=== PATIENT | female | born 1945 | race Caucasian/White ===

== ENCOUNTER 2016-06-01 17:28 | Inpatient (IN) | payer MEDICARE ==
[~2016-06-01] VITALS: Ht 162.6 cm; Wt 82.5 kg
--- NOTE | 2016-06-01 17:43 | NUR ---
TRANSFER FROM ADMISSIONS BY W/C. OREINTED TO ROOM. CALL LIGHT IN REACH. WILL CONT. PLAN OF CARE.
[2016-06-01 17:56] VITALS: BP 133/75; BMI 34.0
[2016-06-01 18:05] VITALS: BP 133/78
--- NOTE | 2016-06-01 19:00 | NUR ---
INITIAL ROUNDS MADE. PT SITTING UP IN BED WATCHING TV. DENIES NEEDS OR C/O AT THIS TIME. WILL CONT TO MONITOR.
--- NOTE | 2016-06-01 19:00 | NUR ---
INITIAL ROUNDS MADE. PT SITTING UP IN BED WATCHING TV. DENIES NEEDS OR C/O AT THIS TIME. CALL LIGHT IN REACH. CONT TO MONITOR.
[2016-06-01 19:09] LABS: CKMB 1.5 U/L (0.0-3.6); CREATINE KINASE 37 UL (21-215)
[2016-06-01 19:10] LABS: TROPONIN-I 0.207 ng/mL (0.000-0.060)
--- NOTE | 2016-06-01 19:30 | NUR ---
PT IV SITED WITH 20 GA ANGIOCATH TO RIGHT HAND X1 STICK. PT THOMAS WELL. NS STARTED @ 75 ML/HR ORDERED. DRESSING ACCORDING TO POLICY. WILL MONITOR.
--- NOTE | 2016-06-01 20:30 | NUR ---
PT WITH ELEVATED D-DIMER AND ELEVATED TOPI. DR FERNÁNDEZ NOTIFIED. STATES HE WILL BE HERE IN THE AM TO ASSESS THE PT.
[2016-06-01 20:33] LABS: ALBUMIN 2.6 g/dL (3.4-5.0); ANION GAP 18.7 mmol/L (8-16); BILIRUBIN - TOTAL 0.4 mg/dL (0.2-1.3); CREATININE - SERUM 1.1 mg/dL (0.6-1.3); POTASSIUM - SERUM 3.7 mmol/L (3.5-5.1); PROTEIN - SERUM 7.5 g/dL (6.4-8.2)
[2016-06-01 21:01] VITALS: BP 111/66
--- NOTE | 2016-06-01 22:12 | NUR ---
DR DE LA ROSA NOTIFIED OF PT'S ELEVATED D-DIMER AND PT'S C/O DYSPNEA. ORDER RECEIVED FOR STAT CTA PE PROTOCOL. PT UPDATED ON POC AND SHE VERBALIZES UNDERSTANDING.
--- NOTE | 2016-06-02 00:01 | NUR ---
NO CHANGES NOTED IN ASSESSMENT. NO NEEDS VOICED. CALL LIGHT WITHIN REACH. WILL CONT TO MONITOR.
[2016-06-02 00:53] LABS: HEMOGLOBIN A1C 6.9 % (4.8-6.0)
[2016-06-02 01:01] VITALS: BP 124/70
[2016-06-02 01:20] LABS: CKMB 1.2 U/L (0.0-3.6); CREATINE KINASE 45 UL (21-215)
[2016-06-02 01:22] LABS: TROPONIN-I 0.212 ng/mL (0.000-0.060)
[2016-06-02 04:57] VITALS: BP 129/69
[2016-06-02 06:01] LABS: ALBUMIN 2.3 g/dL (3.4-5.0); ALKALINE PHOSPHATASE 123 U/L (46-116); ALT (SGPT) 27 U/L (10-68); BILIRUBIN - TOTAL 0.36 mg/dL (0.2-1.3); CALC OSMOLALITY 283 mosm/kg (275-300); CALCIUM 8.4 mg/dL (8.5-10.1); CARBON DIOXIDE 25.6 mmol/L (21.0-32.0); CHLORIDE - SERUM 105 mmol/L (98-107); CHOL - HDL RATIO 5.1 ratio (2.3-4.1); CHOLESTEROL, TOTAL 163 mg/dL (0-200); CKMB 1.4 U/L (0.0-3.6); CREATINE KINASE 44 UL (21-215); CREATININE - SERUM 1.1 mg/dL (0.6-1.3); GLUCOSE 138 mg/dL (74-106); HDL CHOLESTEROL 32 mg/dL (32-96); LDL CHOLESTEROL 101 mg/dL (0-100); LDL-HDL RATIO 3.2 ratio (1.5-3.5); POTASSIUM - SERUM 3.6 mmol/L (3.5-5.1); SODIUM 142 mmol/L (136-145); TRIGLYCERIDE 150 mg/dL (30-200); TROPONIN-I 0.169 ng/mL (0.000-0.060); UREA NITROGEN 10 mg/dL (7-18); eGFR NON AFRICAN AMERICAN 52 mL/min (90-120)
--- NOTE | 2016-06-02 07:36 | NUR ---
ASSESSMENT COMPLETED. TELEMERTY SHOWS ST. 02 AT 2 L/M PER NC. DENIES ANY NEEDS. CALL LIGHT IN REACH WITH SR UP. WILL MONITOR. REFUSED SCDS
[2016-06-02 08:23] VITALS: BP 112/78
--- NOTE | 2016-06-02 10:42 | NUR ---
UP ON SIDE OF BED. DENIES ANY NEEDS. CALL LIGHT IN REACH WITH SR UP
[2016-06-02] MEDS ORDERED: ANORO ELLIPTA1 EACH INH (11:15)
[2016-06-02 12:17] VITALS: BP 103/67
--- NOTE | 2016-06-02 14:58 | NUR ---
PATIENT HAS BEEN RUNNING AF, HR 116, STILL ON CARDIZEM DRIP. WILL CONTINUE TO MONITOR.
[2016-06-02 15:15] VITALS: BP 126/80
--- NOTE | 2016-06-02 16:11 | NUR ---
LYING QUIETLY WITH EYES CLOSED. TELEMERTY SHOWS AFIB AT 138. NO NEEDS NOTED
--- NOTE | 2016-06-02 17:33 | NUR ---
UP ON SIDE OF BED. DENIES ANY NEEDS. SR UP TIMES 2 WITH CALL LIGHT IN REACH. WILL MONITOR
[2016-06-02 20:00] VITALS: BP 131/82
[2016-06-03] VITALS: BP 121/76
--- NOTE | 2016-06-03 00:53 | NUR ---
HOUSEKEEPING STAFF AT BEDSIDE FOR VS. NEEDS ADDRESSED, CALL LIGHT IN REACH. WILL CONT TO MONITOR.
[2016-06-03 04:00] VITALS: BP 123/85
--- NOTE | 2016-06-03 04:25 | NUR ---
HOG DROPPER REPORTS PT HAS CONVERTED TO SR 76 WITH OCC PAC
[2016-06-03 05:34] LABS: BASOPHILS 0.2 % (0.0-2.0); EOSINOPHILS 0.5 % (0-7); HEMATOCRIT 33.2 % (36.0-48.0); HEMOGLOBIN 10.3 g/dL (12-16); IMMATURE GRANULOCYTES 0.5 % (0-5); LYMPHOCYTES 16.9 % (15-50); MCH 28.3 pg (26.0-34.0); MCV 91.2 fL (80.0-100.0); MEAN PLATELET VOLUME 10.1 fL (7.4-10.4); MONOCYTES 5.7 % (2-11); NEUTROPHILS 76.2 % (40-80); PLATELET COUNT 490 10x3/uL (130-400); RBC 3.64 10x6/uL (4.00-5.40); RDW 15.3 % (11.5-14.5); WBC 11.7 10x3/uL (4.8-10.8)
[2016-06-03 05:56] LABS: ALBUMIN 2.3 g/dL (3.4-5.0); ANION GAP 14.9 mmol/L (8-16); BILIRUBIN - TOTAL 0.27 mg/dL (0.2-1.3); CALCIUM 8.2 mg/dL (8.5-10.1); CARBON DIOXIDE 24.6 mmol/L (21.0-32.0); POTASSIUM - SERUM 3.5 mmol/L (3.5-5.1); PROTEIN - SERUM 6.9 g/dL (6.4-8.2)
[2016-06-03 07:00] VITALS: BP 149/74
--- NOTE | 2016-06-03 08:04 | NUR ---
ASSESSMENT COMPLETED. TELEMERTY SHOWS SR. IV TO RIGHT HAND NS AT 75 AND CARDIZEM AT 10. DENIES ANY NEEDS. SR UP WITH CALL LIGHT IN REACH
--- NOTE | 2016-06-03 10:50 | NUR ---
PT BACK IN AFIB. DENIES ANY NEEDS. CALL LIGHT IN REACH WITH SR UP. WILL MONITOR
--- NOTE | 2016-06-03 11:11 | NUR ---
CALLED TO ROOM PATIENT STATES THAT SHE IS "HAVING TROUBLE BREATHING". CHECKED O2 SAT WITH RESULTS OF 97% ON 3L PER NC. OFFERED A FAN FOR HER TO BE PLACED ON BEDSIDE FOR AIR MOVEMENT. ALSO, TOLD HER THAT WHEN HER DOCTOR MADE ROUNDS THAT WE WOULD SEE ABOUT GETTING HER INHALER STARTED. EXPLAINED THAT HER HEART WENT BACK INTO A. FLUTTER AND THAT ALSO GIVES HER THE FEELING THAT SHE CAN'T BREATH WELL. ON CARDIZEM DRIP STILL. PATIENT SEEMS TO BE HAPPY WITH THIS INFORMATION AND THE FAN. WILL CONTINUE TO MONITOR.
[2016-06-03 11:56] VITALS: BP 139/81
[2016-06-03 14:43] LABS: % SATURATION 13 % (15-55); IRON 31 ug/dl (35-150); TOTAL IRON BIND CAPACITY 229 ug/dl (260-445); UNSAT IRON BIND CAPACITY 198 ug/dl (150-375)
--- NOTE | 2016-06-03 15:35 | NUR ---
UP TO BR. STATES SHE FEELS BETTER ALREADY. TELE SHOWS FLUTTER AT 147. WILL MONITOR
[2016-06-03 16:00] VITALS: BP 154/78
--- NOTE | 2016-06-03 19:00 | NUR ---
INITIAL ROUNDS MADE. PT SITTING UP IN BED WATCHING TV. PT DENIES NEEDS OR C/O AT THIS TIME. DISCUSSED PLAN OF CARE AND NPO AFTER MN. QUESTIONS ANSWERED REGARDING PROCEDURE IN AM.
[2016-06-03 20:00] VITALS: BP 118/74
[2016-06-04] VITALS: BP 112/68
--- NOTE | 2016-06-04 00:22 | NUR ---
CANVASSING MANAGER AT BEDSIDE FOR VS. NEEDS ADDRESSED, CALL LIGHT IN REACH. WILL CONT TO MONITOR.
[2016-06-04 04:00] VITALS: BP 111/64
[2016-06-04 05:06] LABS: APTT 30.8 SECONDS (22.8-39.4); BASOPHILS 0.2 % (0.0-2.0); EOSINOPHILS 0.9 % (0-7); HEMATOCRIT 34.3 % (36.0-48.0); IMMATURE GRANULOCYTES 0.4 % (0-5); INR 1.15 (0.85-1.17); LYMPHOCYTES 13.7 % (15-50); MCH 29.2 pg (26.0-34.0); MCHC 32.1 g/dL (31.0-37.0); MEAN PLATELET VOLUME 11.1 fL (7.4-10.4); MONOCYTES 7.7 % (2-11); NEUTROPHILS 77.1 % (40-80); PLATELET COUNT 416 10x3/uL (130-400); PROTIME 14.6 SECONDS (11.6-15.0); RBC 3.77 10x6/uL (4.00-5.40); RDW 15.6 % (11.5-14.5); WBC 12.9 10x3/uL (4.8-10.8)
--- NOTE | 2016-06-04 06:05 | NUR ---
RESTING WELL WITH EYES CLOSED, CONT TO MONITOR.
[2016-06-04 06:14] LABS: ALBUMIN 2.4 g/dL (3.4-5.0); ANION GAP 15.2 mmol/L (8-16); BILIRUBIN - TOTAL 0.28 mg/dL (0.2-1.3); CALCIUM 8.4 mg/dL (8.5-10.1); POTASSIUM - SERUM 3.2 mmol/L (3.5-5.1)
[2016-06-04 07:42] VITALS: BP 121/64
--- NOTE | 2016-06-04 07:57 | NUR ---
IV TO RIGHT HAND DC'D WITH TIP INTACT DUE TO REDNESS AND PAIN. COVERED WITH 2X2 GAUZE AND TAPE. TOLERATED WELL. RESITED 22G IV TO RIGHT WRIST WITH ONE ATTEMPT. COVERED WITH OPSITE, DATED AND INITIALED. TOLERATED WELL.
--- NOTE | 2016-06-04 08:00 | NUR ---
IV RESTARTED TO RIGHT WRIST WITTH 22 GAUGE CATH X 1 STICK BY WHITNEY EVANS. TELEMETRY UCAF. IV PATENT. CALL LIGHT IN REACH. WILL CONT. PLAN OF CARE.
--- NOTE | 2016-06-04 09:17 | NUR ---
CARDEZEM GTT INFUSING. NPO FOR THORACENTESIS WITH BIOPSY. WILL CONT. GIRSEL OF CARE.
--- NOTE | 2016-06-04 10:05 | NUR ---
LEAVING FOR X-RAY BY W/C.
--- NOTE | 2016-06-04 11:19 | NUR ---
BACK FROM SPECIALS. CALL LIGHT IN REACH. WILL CONT. PLAN OF CARE.
[2016-06-04 11:50] VITALS: BP 111/57
[2016-06-04 12:39] LABS: PROTEIN - BODY FLUID 2.8 G/DL
[2016-06-04 13:11] VITALS: Ht 162.6 cm; Wt 82.5 kg
[2016-06-04 13:27] LABS: LYMPH - BF 87 %; MACROPHAGES BF 4 %; NEUT - BF 9 %
[2016-06-04 16:01] VITALS: BP 135/66
--- NOTE | 2016-06-04 19:00 | NUR ---
INITIAL ROUNDS MADE. PT SITTING UP INBED WATCHING TV. DENIES NEEDS OR C/O AT THIS TIME. CALL LIGHT INREACH. WILL CONT TO MONITOR.
[2016-06-04 20:00] VITALS: BP 119/62
--- NOTE | 2016-06-04 23:37 | NUR ---
LITHOGRAPHIC PHOTOGRAPHER AT BEDSIDE FOR VS, NEEDS ADDRESSED AT THIS TIME. CALL LIGHT IN REACH. CONT TO MONITOR.
[2016-06-05] VITALS: BP 112/61
[2016-06-05 04:00] VITALS: BP 101/71
[2016-06-05 05:34] LABS: BASOPHILS 0.2 % (0.0-2.0); HEMATOCRIT 34.5 % (36.0-48.0); HEMOGLOBIN 10.9 g/dL (12-16); IMMATURE GRANULOCYTES 0.4 % (0-5); LYMPHOCYTES 17.2 % (15-50); MCH 28.6 pg (26.0-34.0); MCHC 31.6 g/dL (31.0-37.0); MCV 90.6 fL (80.0-100.0); MONOCYTES 8.3 % (2-11); NEUTROPHILS 72.9 % (40-80); PLATELET COUNT 492 10x3/uL (130-400); RBC 3.81 10x6/uL (4.00-5.40); RDW 15.4 % (11.5-14.5); WBC 11.3 10x3/uL (4.8-10.8)
[2016-06-05 05:49] LABS: ALBUMIN 2.5 g/dL (3.4-5.0); ANION GAP 12.6 mmol/L (8-16); BILIRUBIN - TOTAL 0.36 mg/dL (0.2-1.3); CALCIUM 8.2 mg/dL (8.5-10.1); CARBON DIOXIDE 32.2 mmol/L (21.0-32.0); CREATININE - SERUM 1.2 mg/dL (0.6-1.3); PROTEIN - SERUM 7.2 g/dL (6.4-8.2)
[2016-06-05 06:03] LABS: POTASSIUM - SERUM 2.8 mmol/L (3.5-5.1)
[2016-06-05 07:52] VITALS: BP 113/75
[2016-06-05 09:17] LABS: FOLATE (FOLIC ACID) - SERUM 8.9 ng/mL (>3.0)
--- NOTE | 2016-06-05 10:40 | NUR ---
TELEMETRY FLUTTER. HR 141. RESTS WITH EYES CLOSED. CALL LIGHT IN REACH. WILL CONT. PLAN OF CARE.
[2016-06-05 11:34] VITALS: BP 123/51
--- NOTE | 2016-06-05 15:47 | NUR ---
URINE SPECIMEN COLLECTED AND TAKEN TO LAB FOR UA. WILL MONITOR.
[2016-06-05 16:05] VITALS: BP 114/48; BP 128/68
[2016-06-05 16:08] LABS: MAGNESIUM - SERUM 1.8 mg/dL (1.8-2.4)
[2016-06-05 16:11] LABS: APPEARANCE CLEAR (CLEAR); BILIRUBIN NEGATIVE (NEGATIVE); COLOR YELLOW (YELLOW); GLUCOSE NEGATIVE (NEGATIVE); KETONE NEGATIVE (NEGATIVE); LEUKOCYTE ESTERASE NEGATIVE (NEGATIVE); NITRITE NEGATIVE (NEGATIVE); PROTEIN NEGATIVE (NEGATIVE); SPECIFIC GRAVITY 1.015 (1.005-1.020); UROBILINOGEN NORMAL (NORMAL)
[2016-06-05 16:14] LABS: POTASSIUM - SERUM 4.6 mmol/L (3.5-5.1)
--- NOTE | 2016-06-05 16:47 | NUR ---
Patient Name: JASPER BOYKIN Admission Status: Urgent Accout number: [id number] Admission Date: 06-02-2016 : 1945 Admission Diagnosis:DYSPNEA, UNSPECIFIED Attending: MICHAEL Current LOS: 3 Anticipated DC Date: Planned Disposition: Home Primary Insurance: MEDICARE A & B Discharge Planning Comments: * Is the patient Alert and Oriented? Yes 0 * How many steps to enter\exit or inside your home? 3 0 * PCP DR. HUNTER 0 * Pharmacy [facility] [address] * Preadmission Environment Home with Family 0 * ADLs Independent 0 * Equipment None 0 * Other Equipment NO MEDICAL EQUIPMENT PROVIDER PREFERENCE 0 * List name and contact numbers for known caregivers / representatives who currently or will assist patient after discharge: LEE BOYKIN, SON, 0 * Community resources currently utilized None 0 * Please name any agencies selected above. NONE 0 * Additional services required to return to the preadmission environment? No 0 * Can the patient safely return to the preadmission environment? Yes 0 * Has this patient been hospitalized within the prior 30 days at any hospital? No 0 CM MET WITH PT, SON AND DAUGHTER IN ROOM TO DISCUSS DISCHARGE PLANNING AND NEEDS. PT REPORTS LIVING AT HOME INDEPENDENTLY WITH ADULT SON AND DAUGHTER. PT HAS NO MEDICAL EQUIPMENT AND NO OUTSIDE SERVICES ASSISTING IN THE HOME. CM DISCUSSED AVAILABILITY OF HOME HEALTH, REHAB SERVICES AND MEDICAL EQUIPMENT. PT DENIES DISCHARGE NEEDS, REPORTS HER SON WILL PICK HER UP FOR DISCHARGE HOME. PT PLANS TO DISCHARGE HOME WITH FAMILY, HAS NO ANTICIPATED DISCHARGE NEEDS. CM TO FOLLOW AND ASSIST IF NEEDED. Lead Technical Architect: Brendan Payan
--- NOTE | 2016-06-05 19:00 | NUR ---
INITIAL ROUNDS MADE. PT SITTINGUP IN BED WATCHING TV. DENIES NEEDS OR C/O AT THIS TIME. CALL LIGHT IN REACH. WILL CONT TO MONITOR.
[2016-06-05 20:00] VITALS: BP 113/61
--- NOTE | 2016-06-05 23:43 | NUR ---
OYSTER FLOATER AT BEDSIDE FOR VS, NEEDS ADDRESSED. CALL LIGHT IN REACH.CONT TO MONITOR.
[2016-06-06] VITALS: BP 94/56
--- NOTE | 2016-06-06 00:43 | NUR ---
STOOL COLLECTED AND TAKEN TO LAB
[2016-06-06 03:10] LABS: AFB SPECIMEN PROCESSING Not Indicated (())
[2016-06-06 04:00] VITALS: BP 100/64
[2016-06-06 05:02] LABS: BASOPHILS 0.2 % (0.0-2.0); EOSINOPHILS 1.1 % (0-7); HEMATOCRIT 36.5 % (36.0-48.0); HEMOGLOBIN 11.6 g/dL (12-16); IMMATURE GRANULOCYTES 0.4 % (0-5); LYMPHOCYTES 18.9 % (15-50); MCH 28.7 pg (26.0-34.0); MCHC 31.8 g/dL (31.0-37.0); MCV 90.3 fL (80.0-100.0); MEAN PLATELET VOLUME 10.1 fL (7.4-10.4); MONOCYTES 8.4 % (2-11); PLATELET COUNT 505 10x3/uL (130-400); RBC 4.04 10x6/uL (4.00-5.40); RDW 15.3 % (11.5-14.5)
--- NOTE | 2016-06-06 05:24 | NUR ---
SITTING UP ON SIDE OF BED FOR BATH.
[2016-06-06 05:46] LABS: ALBUMIN 2.7 g/dL (3.4-5.0); ANION GAP 15.4 mmol/L (8-16); BILIRUBIN - TOTAL 0.42 mg/dL (0.2-1.3); CALCIUM 8.4 mg/dL (8.5-10.1); CARBON DIOXIDE 28.5 mmol/L (21.0-32.0); CREATININE - SERUM 1.2 mg/dL (0.6-1.3); MAGNESIUM - SERUM 1.8 mg/dL (1.8-2.4); PHOSPHOROUS 4.3 mg/dL (2.5-4.9); PROTEIN - SERUM 7.8 g/dL (6.4-8.2)
[2016-06-06 05:49] LABS: POTASSIUM - SERUM 3.9 mmol/L (3.5-5.1)
[2016-06-06 08:00] VITALS: BP 96/66
--- NOTE | 2016-06-06 09:05 | NUR ---
SPOKE WITH DR. JOLENE RODGERS HR AND RHYTHM. NEW ORDERS GIVEN. IV PATENT. CALL LIGHT IN REACH. TELEMETRY FLUTTER HR 123.
[2016-06-06 10:18] LABS: FUNGUS STAIN Final report (())
[2016-06-06 12:00] VITALS: BP 92/62
[2016-06-06 16:00] VITALS: BP 117/72
--- NOTE | 2016-06-06 19:30 | NUR ---
RESUMED CARE OF PT, LYING IN BED RESPIRAITONS EVEN AND UNLABORED ON 2LPM VIA NC. 121 FLUTTER ON TELEMETRY. RIGHT AC INFUSING CARDIZEM @ 15 AND NS @ KVO. NO NEEDS VOICED AT THIS TIME. WILL CONTINUE TO MONITOR. SEE NURSE ASSESSMENT. CALL LIGHT IN REACH.
[2016-06-06 21:56] VITALS: BP 110/47
--- NOTE | 2016-06-07 00:12 | NUR ---
ELECTRICAL DESIGNER DRAFTER AT BEDSIDE TO OBTAIN VITALS, CALL LIGHT IN REACH. WILL CONTINUE WITH PLAN OF CARE. 57 SB ON TELEMETRY, CONVERTED AT 2356. DECREASED CARDIZEM TO 10. WILL CONTINUE TO MONITOR.
[2016-06-07 01:17] VITALS: BP 93/41
--- NOTE | 2016-06-07 03:26 | NUR ---
56 SB ON TELEMETRY, DECREASED RATE TO 5ML/HR.
[2016-06-07 05:11] VITALS: BP 97/41
[2016-06-07 05:46] LABS: BASOPHILS 0.1 % (0.0-2.0); EOSINOPHILS 0.3 % (0-7); HEMATOCRIT 36.5 % (36.0-48.0); HEMOGLOBIN 11.6 g/dL (12-16); IMMATURE GRANULOCYTES 0.4 % (0-5); LYMPHOCYTES 16.1 % (15-50); MCHC 31.8 g/dL (31.0-37.0); MCV 91.3 fL (80.0-100.0); MONOCYTES 6.8 % (2-11); NEUTROPHILS 76.3 % (40-80); PLATELET COUNT 534 10x3/uL (130-400); RDW 15.2 % (11.5-14.5); WBC 14.2 10x3/uL (4.8-10.8)
--- NOTE | 2016-06-07 06:03 | NUR ---
NO CHANGES FROM PREVIOUS ASSESSMENT. CALL LIGHT IN REACH.
[2016-06-07 06:21] LABS: ALBUMIN 2.6 g/dL (3.4-5.0); ANION GAP 13.4 mmol/L (8-16); BILIRUBIN - TOTAL 0.36 mg/dL (0.2-1.3); CARBON DIOXIDE 30.6 mmol/L (21.0-32.0); CREATININE - SERUM 1.3 mg/dL (0.6-1.3); MAGNESIUM - SERUM 2.2 mg/dL (1.8-2.4); PROTEIN - SERUM 7.6 g/dL (6.4-8.2)
[2016-06-07 07:39] VITALS: BP 113/61
--- NOTE | 2016-06-07 09:39 | NUR ---
TELEMETRY SR. IV PATENT. CALL LIGHT IN REACH. WILL CONT. PLAN OF CARE.
--- NOTE | 2016-06-07 12:06 | NUR ---
CONSENTS SIGNED FOR IP.
[2016-06-07 12:11] VITALS: BP 100/42
--- NOTE | 2016-06-07 17:49 | NUR ---
LEAVING FOR MRI BY W/C.
[2016-06-07 20:00] VITALS: BP 123/51
[2016-06-08] VITALS: BP 117/61
--- NOTE | 2016-06-08 03:33 | NUR ---
HIGHWAY PATROL COMMANDER AT BEDSIDE TO OBTAIN VITALS, CALL LIGHT IN REACH. WILL CONTINUE WITH PLAN OF CARE.
[2016-06-08 04:00] VITALS: BP 105/66
[2016-06-08 07:05] LABS: BASOPHILS 0 % (0.0-2.0); EOSINOPHILS 0 % (0-7); HEMATOCRIT 36.4 % (36.0-48.0); HEMOGLOBIN 11.6 g/dL (12-16); IMMATURE GRANULOCYTES 0.2 % (0-5); MCH 28.7 pg (26.0-34.0); MCHC 31.9 g/dL (31.0-37.0); MCV 90.1 fL (80.0-100.0); MEAN PLATELET VOLUME 9.9 fL (7.4-10.4); MONOCYTES 1.4 % (2-11); NEUTROPHILS 92.4 % (40-80); PLATELET COUNT 537 10x3/uL (130-400); RBC 4.04 10x6/uL (4.00-5.40); RDW 14.9 % (11.5-14.5)
[2016-06-08 07:23] LABS: ANION GAP 15.2 mmol/L (8-16); CALCIUM 9.3 mg/dL (8.5-10.1); CARBON DIOXIDE 29.5 mmol/L (21.0-32.0); CREATININE - SERUM 1.3 mg/dL (0.6-1.3); MAGNESIUM - SERUM 2.2 mg/dL (1.8-2.4); PHOSPHOROUS 5.4 mg/dL (2.5-4.9); POTASSIUM - SERUM 3.7 mmol/L (3.5-5.1)
--- NOTE | 2016-06-08 07:36 | NUR ---
RESTING QUIETLY RESP UNLABORED NAD NOTED
--- NOTE | 2016-06-08 07:55 | NUR ---
ASSESSMENT COMPLETED. TELEMERTY SHOWS SR WITH PACS. 02 AT 2L/M PER NC. DENIES ANY NEEDS. CALL LIGHT IN REACH WITH SR UP. WILL MONITOR. SR UP WITH CALL LIGHT IN REACH. NPO FOR SURGERY.
[2016-06-08 08:07] VITALS: BP 115/58
--- NOTE | 2016-06-08 08:50 | NUR ---
TO SURGERY PER BED
--- NOTE | 2016-06-08 10:32 | NUR ---
1028 0.5MG DILAUDID GIVEN FOR PAIN 11/15 1032 REPORT GIVEN TO ARLET GEORGE
--- NOTE | 2016-06-08 11:30 | NUR ---
BACK FROM SURGERY. AWAKE AND ALERT. DRSG TO RIGHT CHEST CLEAN AND DRY. DENIES ANY NEEDS. TELEMERTY SHOWS SR. V/S STABLE. WILL MONITOR
--- NOTE | 2016-06-08 13:27 | NUR ---
Nutrition Follow Up: Chart reviewed. Pt is eating 92% meal avg on a Regular diet. Wt loss 8# since admit. I<O. +BM 06/06/16. Labs noted - Glucose, Phos elevated. Meds noted including NS @ 25 ml/hr, Solu-Medrol, Phenergan, Zofran, Lasix. Pt with good po intake at this time. Rec continue current diet. RD following.
--- NOTE | 2016-06-08 13:28 | NUR ---
LYING QUIETLY WITH EYES CLOSED.. NO DISTRESS. NOTED. CALL LIGHT IN REACH WITH SR UP. WILL MONITOR
[2016-06-08 15:59] VITALS: BP 109/69
[2016-06-08 20:31] VITALS: BP 123/65
[2016-06-09 00:15] VITALS: BP 117/58
--- NOTE | 2016-06-09 01:04 | NUR ---
PT RESTING WELL WITHOUT C/O OR DISTRESS NOTED. EYES CLOSED AND RESP EVEN AND UNLABORED. CALL LIGHT WITHIN REACH. WILL CONTINUE TO MONITOR.
[2016-06-09 04:30] VITALS: BP 117/66
[2016-06-09 07:55] VITALS: BP 133/55
--- NOTE | 2016-06-09 09:51 | NUR ---
RELEMETRY SR. CALL LIGHT IN REACH. WILL MONITOR NEEDS.
[2016-06-09 11:47] VITALS: BP 121/56
[2016-06-09] MEDS ORDERED: OMNICEF300 MG PO (13:36)
[2016-06-09] MEDS ORDERED: ATROVENT 0.02%2.5 ML UPD (13:37)
[2016-06-09] MEDS ORDERED: LASIX20 MG PO (13:37)
[2016-06-09] MEDS ORDERED: BROVANA15 MCG/2 M INH (13:37)
[2016-06-09] MEDS ORDERED: CARDIZEM 90 MG90 MG PO (13:37)
[2016-06-09] MEDS ORDERED: BETAPACE 80 MG80 MG PO (13:37)
[2016-06-09] MEDS ORDERED: PREDNISONE20 MG PO (13:38)
[2016-06-09] MEDS ORDERED: PULMICORT0.5 MG/21 UPD (13:38)
[2016-06-09] MEDS ORDERED: K-DUR20 MEQ PO (13:38)
[2016-06-09] MEDS ORDERED: PROTONIX40 MG PO (13:38)
--- NOTE | 2016-06-09 15:30 | NUR ---
IV AND TELEMETRY DCD. DC PLANS GIVEN. UNDERSTANDING VOICED. ESCORTED TO CAR BY W/C.
--- NOTE | 2016-06-09 18:06 | NUR ---
Late Entry Patient for discharge to home w/ nebulizer today. CM met w/ patient and her son at the bedside. Advised of 4 providers. The son selected [facility]. TC to Sofia Kim. Faxed facesheet, prescription , H/P and pulmonary consult. Sofia called to speak with the patient regarding delivery. release coordinator called [facility] in [place] however they were closed until Saturday. She called the second [employer] store and they had closed for the day. Will not be available until Saturday. She spoke with the patient and the patient chose [facility] on [address]. release coordinator called the RX's in. The Atrovent was the most important updraft medication per DR You. release coordinator provided the patient w/ the prices of the medication. Patient has no secondary insurance. CM called [employer] and left a message regarding financial assistance. Patient is newly diagnosed cancer patient. Patient discharged to home w/ family providing transportation.
--- NOTE | 2016-06-26 08:17 | EC ---
PATIENT:JASPER BOYKIN DATE OF SERVICE: 06/02/16 SEX: F MEDICAL RECORD: [id number] DATE OF : [birth year] LOCATION:D. D.211 AGE OF PATIENT: 71 ADMISSION DATE: 06/02/16 REFERRING PHYSICIAN: INTERPRETING PHYSICIAN: JING LAURENT M.D. ECHOCARDIOGRAM REPORT ECHO CHARGES 4 ECHO COMPLETE CLINICAL DIAGNOSIS: A-FIB ECHOCARDIOGRAPHIC MEASUREMENTS (adult normal given) AC root (d.<3.7cm) 3.3 LV Septum d (<1.2 cm> 1.1 Valve Excursion 1.4 LV Septum (systole) 1.7 Left Atria (s.<4.0cm> 4.0 LVPW d(<1.2cm) 1.1 RV (d.<2.3cm) 2.3 LVPW (sytole) 1.6 LV diastole(<5.6CM) 4.9 MV E-F(>70mm/sec) LV systole 3.4 LVOT Diameter 2.1 MV exc.(>10mm) Est.ejection fraction (50-75%) Pericardial Effusion N DOPPLER: LVIT A E 162 LA RVSP 37.2 LVOT 89.0 AOP1/2T Asc. Ao 140 RVOT 48.0 RA PA 74.0 AV Gradient Peak 7.8 AV Mean 3.9 AV Area 2.0 MV Gradient Peak 14.2 MV Mean 5.0 MV Area COMMENTS: Dry Cleaner Apprentice: Perri CHINOOE Cap Maker:Esha Laurent TAPE# PACS DATE OF SERVICE: 06/02/2016 REFERRING PHYSICIAN: Dr. Gannon. DESCRIPTION: Left ventricle is normal size. However, there is severe LV dysfunction noted. Estimated ejection is in the order of 20%. Mitral valve is structurally normal. There is trivial regurgitation seen. Left atrium is mildly dilated. The aortic valve leaflets are thickened. There is no stenosis or regurgitation seen. Right ventricle is normal size and function. Tricuspid valve is normal. There is mild regurgitation noted. Right ventricular systolic ECHOCARDIOGRAM REPORT [id number] JASPER BOYKIN pressure is elevated at 37 mmHg. There is no pericardial effusion noted. IMPRESSION: 1. Severe left ventricular dysfunction with ejection fraction 20% consistent with cardiomyopathy. 2. Moderate tricuspid regurgitation. TRANSINT:[id number] Voice Confirmation ID: [id number] DOCUMENT ID: [id number] JING LAURENT M.D. at 0817 CC: [id number] DICTATION DATE: 06/02/161908 DIVINITY PROFESSOR: 06/02/161926 DIS IN 06/09/16 [place] [id number] [place] [id number]
--- NOTE | 2016-06-29 13:49 | CN ---
PATIENT NAME:JASPER HENDERSON MEDICAL RECORD: [id number] : 47 LOCATION:D. D.2117 ADMIT DATE: 06/02/16 ACCOUNT: [id number] CONSULTING PHYSICIAN: BOO JAMES MD REFERRING PHYSICIAN: DAKSHA GANNON MD DATE OF CONSULTATION: 06/03/2016 CONSULT REQUESTING PHYSICIAN: Campbell Carrera MD. REASON FOR CONSULTATION: Dyspnea, mass right upper lobe, pleural effusion. HISTORY OF PRESENT ILLNESS: Ms. Henderson is a 70-year-old female. According to the patient, she has upper respiratory tract infection a few days ago and that got better, but then she developed progressive shortness of breath, orthopnea and PND, and with shortness of breath at rest. She was seen in Dr. Gannon office yesterday. EKG was done and the patient's heart rate was irregular, admitted to the hospital for uncontrolled AFib. The patient has a positive D-dimer and CTA of the chest was done which showed mass in the right upper lobe and bilateral pleural effusions, right more than the left. She is also having a dry cough. The patient was a chronic smoker. She just quitted a month ago. REVIEW OF SYSTEMS: Mainly in the history of present illness. PAST MEDICAL HISTORY: 1. Hypertension, there is no history of chronic obstructive pulmonary disease and asthma. 2. History of coronary artery disease. PAST SURGICAL HISTORY: Nonsignificant. ALLERGIES: There is no known drug allergies. PRESENT MEDICATIONS: On Blinkbuggy was reviewed. She is on Cardizem drip. PERSONAL AND SOCIAL HISTORY: The patient was a chronic smoker and nearly a pack a day. She just quitted a month ago. She is a nondrinker. FAMILY HISTORY: Noncontributory. PHYSICAL EXAMINATION: GENERAL: Now, the patient is lying comfortably in bed. She is not in acute distress. VITAL SIGNS: The blood pressure is 139/81, pulse is 78 to 145, temperature is 97.7, and SpO2 is 99% on 3 liter nasal cannula. HEENT: Conjunctivae pink, sclerae nonicteric. NECK: Supple, very elevated JVD. CHEST: The chest is very minimal on the right side. Dullness of percussion. There are crackles, wheeze on forceful expiration. HEART: Rate and rhythm irregular. Normal sound. No murmur. ABDOMEN: Soft, bowel sounds present. No hepatosplenomegaly. RECTAL: Deferred. EXTREMITIES: She has 2+ edema. SKIN: Warm, normal turgor. CENTRAL NERVOUS SYSTEM: The patient is awake and alert. There are no obvious CONSULT REPORT [id number] JASPER HENDERSON cranial nerve abnormalities. The gait was not tested. IMAGING: CTA of the chest: There is a mass in the right upper lobe. There is enlarged, moderate sized pleural effusion on the right, small on the left. There was no PE. LABORATORY DATA: CBC: The WBC is 11.7, hemoglobin 10.3, hematocrit 33.2. The platelet count is 490. Chemistry: Sodium is 142, potassium 3.5, BUN is 9, creatinine is 1. D-dimer was positive with a negative CTA. Cardiac echo: The PA pressure is 37. The EF is 20%. IMPRESSION: 1. Mass right upper lobe, rule out CA of the lung. 2. Bilateral pleural effusion, right more than the left, possibly secondary to congestive heart failure. 3. Atrial fibrillation. 4. Congestive heart failure with systolic dysfunction, EF of 20% and some mild pulmonary hypertension secondary to congestive heart failure, possibly underlying chronic obstructive pulmonary disease with a history of smoking more than [id number]. 5. Dyspnea. 6. Ex-smoker. RECOMMENDATION: Start her on Xopenex and ipratropium nebulizer. Start on Brovana, budesonide nebulizer. Start her on Lasix. We will get thoracentesis of the chest of the right tomorrow and also to consult of transthoracic needle biopsy of the right apical mass. Dr. Carrera, once again thanks for involving me in the care of Ms. Henderson. TRANSINT:[id number] Voice Confirmation ID: [id number] DOCUMENT ID: [id number] BOO JAMES MD at 1349 CC: DAKSHA GANNON MD [id number] DICTATION DATE: 06/03/16 1434 STAGE BUILDER: 06/03/16 1623 DIS IN 06/09/[address] [address]
[2016-07-02 08:09] LABS: FUNGUS MYCOLOGY CULTURE Final report (())
--- NOTE | 2016-07-06 13:21 | OP ---
PATIENT NAME: JASPER BOYKIN MEDICAL RECORD: [id number] :47 LOCATION:D.M2 D.2117 ADMISSION DATE:06/02/16 SURGEON: GEORGE PAREDES MD DATE OF OPERATION: 06/08/2016 PREOPERATIVE DIAGNOSES: 1. Lung cancer. 2. Hypertension. 3. Coronary artery disease. POSTOPERATIVE DIAGNOSES: 1. Lung cancer. 2. Hypertension. 3. Coronary artery disease. PROCEDURE: Right-sided subclavian vein PowerPort placement with fluoroscopic interpretation. SURGEON: George Paredes MD OPERATIVE PROCEDURE: The patient's right chest was prepped and draped in sterile fashion. A needle was used to cannulate the right subclavian vein. Fluoro was used to note that the wire was in good position in the venous system. A skin incision was made on the right lateral chest and a subcutaneous pouch was made overlying the pectoral fascia. The catheter was tunneled between this pouch and the wire exit site. The port was sutured to the pectoral fascia using interrupted 0 Prolenes times 2. The catheter was then cut with a beveled tip at 17 cm. The dilator trocar device was placed over the wire and the wire and dilator were removed. The catheter tip was advanced through the trocar with ease and the trocar was removed. The catheter tip was resting in good position in the superior vena cava. The catheter flushed easily with heparinized saline. The subcutaneous tissues were reapproximated with interrupted 3-0 Vicryl and skin was closed with running subcutaneous 5-0 Monocryl. We then accessed the port and flushed it one last time before placing a dressing. COMPLICATIONS: None. CONDITION: Stable. ANESTHESIA: General endotracheal. BLOOD LOSS: Minimal. TRANSINT:[id number] Voice Confirmation ID: [id number] DOCUMENT ID: [id number] GEORGE PAREDES MD at 1321 CC: [id number] DICTATION DATE: 06/08/16 1009 CHIPS SCREEN TENDER: 06/08/16 1536 DIS IN 06/09/16 [place] [id number] [place] [address]
[2016-07-25 16:14] LABS: ACID FAST CULTURE Negative (()); ACID FAST SMEAR Negative (())
== END 2016-06-09 15:30 | disposition home or self-care (01) | DRG 180 ==
LOC: D.M2 17:28 → OBSVTIME 17:30 → D.M2 06-02 18:34
PROVIDERS: Emergency Medicine; Family Medicine; Internal Medicine Cardiovascular Disease; Internal Medicine Pulmonary Disease; Radiology Diagnostic Radiology; ADMIT Family Medicine Adult Medicine
PROC: 0BBC3ZX Excision of Right Upper Lung Lobe, Percutaneous Approach, Diagnostic (ICD-10-PCS; principal; 2016-06-04 14:00)
PROC: 0W993ZZ Drainage of Right Pleural Cavity, Percutaneous Approach (ICD-10-PCS; 2016-06-04 14:00)
PROC: 0JH63XZ Insertion of Tunneled Vascular Access Device into Chest Subcutaneous Tissue and Fascia, Percutaneous Approach (ICD-10-PCS; 2016-06-08)
PROC: 05H533Z Insertion of Infusion Device into Right Subclavian Vein, Percutaneous Approach (ICD-10-PCS; 2016-06-08)
PROC: B5161ZA Fluoroscopy of Right Subclavian Vein using Low Osmolar Contrast, Guidance (ICD-10-PCS; 2016-06-08)
DX: C34.11 Malignant neoplasm of upper lobe, right bronchus or lung (principal); I50.23 Acute on chronic systolic (congestive) heart failure; J18.9 Pneumonia, unspecified organism; J44.1 Chronic obstructive pulmonary disease with (acute) exacerbation; I48.92 Unspecified atrial flutter; I42.9 Cardiomyopathy, unspecified; J90 Pleural effusion, not elsewhere classified; I24.8 Other forms of acute ischemic heart disease; R91.8 Other nonspecific abnormal finding of lung field; I11.0 Hypertensive heart disease with heart failure; I25.10 Atherosclerotic heart disease of native coronary artery without angina pectoris; E87.6 Hypokalemia; D64.9 Anemia, unspecified; I27.2 Other secondary pulmonary hypertension; I48.0 Paroxysmal atrial fibrillation; Z87.891 Personal history of nicotine dependence

== ENCOUNTER → 2016-08-09 07:59 | Outpatient (CLI) | payer MEDICARE ==
[2016-06-04 13:11] VITALS: BMI 33.1
[~2016-08-09 07:59] MED LIST: ANORO ELLIPTA1 EACH INH; ATROVENT 0.02%2.5 ML UPD; BETAPACE 80 MG80 MG PO; BROVANA15 MCG/2 M INH; CARDIZEM 90 MG90 MG PO; K-DUR20 MEQ PO; LASIX20 MG PO; OMNICEF300 MG PO; PREDNISONE20 MG PO; PROTONIX40 MG PO; PULMICORT0.5 MG/21 UPD
== END | disposition home or self-care (01) ==
LOC: D.CT 07:59
DX: C34.11 Malignant neoplasm of upper lobe, right bronchus or lung (principal)

== ENCOUNTER → 2016-11-16 12:18 | Outpatient (CLI) | payer MEDICARE ==
[2016-06-04 13:11] VITALS: BMI 33.1
--- NOTE | ~2016-11-16 | EC ---
PATIENT:JASPER BOYKIN DATE OF SERVICE: 11/16/16 SEX: F MEDICAL RECORD: [id number] DATE OF : 47 LOCATION:D.PENDING SALE TO [facility] AGE OF PATIENT: 71 ADMISSION DATE: 11/16/16 REFERRING PHYSICIAN: INTERPRETING PHYSICIAN: BRUCE SCHWARTZ MD ECHOCARDIOGRAM REPORT ECHO CHARGES 4 ECHO COMPLETE CLINICAL DIAGNOSIS: LUNG CANCER/HTN/PULMONARY EMBOLISM/SOB ECHOCARDIOGRAPHIC MEASUREMENTS (adult normal given) AC root (d.<3.7cm) 3.4 cm LV Septum d (<1.2 cm> 1.3 cm Valve Excursion 1.2 cm LV Septum (systole) 1.5 cm Left Atria (s.<4.0cm> 3.6 cm LVPW d(<1.2cm) 1.0 cm RV (d.<2.3cm) 2.1 cm LVPW (sytole) 1.5 cm LV diastole(<5.6CM) 5.0 cm MV E-F(>70mm/sec) cm LV systole 3.8 cm LVOT Diameter 1.6 cm MV exc.(>10mm) cm Est.ejection fraction (50-75%) % Pericardial Effusion N DOPPLER: LVIT cm/sec A 114.0cm/sec E 74.0 cm/sec LA cm/sec RVSP 33.0 mmHg LVOT 83.0 cm/sec AOP1/2T m/s Asc. Ao 149 cm/sec RVOT 57.0 cm/sec RA cm/sec PA 100 cm/sec AV Gradient Peak 8.9 mmHg AV Mean 5.6 mmHg AV Area 1.0 cm MV Gradient Peak 4.5 mmHg MV Mean 1.4 mmHg MV Area cm COMMENTS: Commercial Leasing Agent: Perri CHINOOE Hydraulic Controls Technician: 1 Dr. Schwartz TAPE# PACS DATE OF SERVICE: 11/16/2016 Echocardiogram FINDINGS: 1. Left ventricle chamber size is within normal limits. Left ventricular systolic function is normal. Overall ejection fraction estimated at 55%. 2. Left atrium, right atrium, right ventricle chamber size is within normal limits. 3. Valvular structures have normal structure and motion. ECHOCARDIOGRAM REPORT [id number] JASPER BOYKIN 4. Doppler interrogation only reveals trace tricuspid regurgitation, no other valvular insufficiency or stenosis and pulmonary systolic pressure is normal estimated at 33 mmHg. 5. No evidence of pericardial effusion or left ventricular thrombus. TRANSINT:[id number] Voice Confirmation ID: [id number] DOCUMENT ID: [id number] BRUCE SCHWARTZ MD CC: [id number] DICTATION DATE: 11/16/16 1638 LEAD ESTHETICIAN: 11/17/16 0048 DEP CLI 11/16/16 [facility] [address] [id number]
== END | disposition home or self-care (01) ==
LOC: D.RT 08:00 → D.ECHO 12:18
DX: C34.90 Malignant neoplasm of unspecified part of unspecified bronchus or lung (principal); I10 Essential (primary) hypertension; R06.02 Shortness of breath

== ENCOUNTER 2016-11-28 05:02 | Inpatient (IN) | payer MEDICARE ==
--- NOTE | 2016-11-24 12:18 | HP ---
PATIENT: JASPER BOYKIN MEDICAL RECORD: [id number] ACCOUNT: [id number] LOCATION:[facility] : 46 ADMISSION DATE: 11/28/16 HISTORY AND PHYSICAL EXAMINATION NameSJASPER CERRATO (71yo, F) ID# [id number]. Date/Time11/22/2016 01:20QUIEN50 1945[facility] ClinicProviderEDJOY ROSADO MDInsuranceMed Primary: [place] Insurance # : [id number] Referring Provider Name : DAKSHA HUNTER Employer Name : UNKNOWN Prescription: [employer] - This member could not be found in the payer's files. Please verify coverage and all member demographic information. Chief Complaint Followup: Malignant tumor of lung following RUL lung CA Patient's Care Team Referring Provider (): DAKSHA HUNTER: [facility], [facility] [place] [address], , Other: HARDEEP AGUIRRE MD: [address] [place] [address], , Vitals BP:150/80 sitting R arm 11/22/2016 01:28 pmHR:80R/R 11/22/2016 01:28 pmHt:5 ft 4 in 11/22/2016 01:25 pmWt:180 lbs 11/22/2016 01:27 pmBMI:30.9 11/22/2016 01:27 pmAllergies Reviewed Allergies NKDAMedications Reviewed Medications Eliquis 5 mg tablet Take 1 tablet(s) twice a day by oral route.11/08/16 enteredKathy Wilsonfurosemide 20 mg tablet Take 1 tablet(s) every day by oral route.11/05/16 enteredCinbryce Brownmetoprolol tartrate 50mg 1/2 tablet twice daily11/05/16 enteredCindy Brownpotassium 20meq 1 tablet daily11/05/16 enteredAyaka LazoProblems Reviewed Problems Malignant tumor of lung - Onset: 11/08/2016, Right Family History Reviewed Family History Mother- Cerebrovascular accidentSister- Malignant neoplasm of liver - renal failure - Malignant tumor of pharynxFather- Pulmonary emphysemaSocial History Reviewed Social History General Exercise level: Occasional Smoking Status: Former smoker Tobacco-years of use: 40 Surgical History Reviewed Surgical History [employer]AM[employer]ATE History (not configured) Past Medical History HISTORY AND PHYSICAL [id number] JASPER BOYKIN Reviewed Past Medical History Blurred Vision: Y Cancer: Y High Blood Pressure: Y Shortness of Breath: Y Documents for Discussion N/A Screening None recorded. HPI carcinoma right upper lobe ROS Patient reports exercise intolerance but reports no fever, no night sweats, no significant weight gain, and no significant weight loss. She reports no dry eyes, no irritation, and no vision change. She reports no difficulty hearing and no ear pain. She reports no frequent noseblee ds and no nose/sinus problems. She reports no sore throat, no bleeding gums, no snoring, no dry mouth, no mouth ulcers, no oral abnormalities, and no teeth problems. She reports no jugular vein distension and no swollen glands. She reports no chest pain, n o arm pain on exertion, no shortness of breath when walking, no shortness of breath when lying down, no palpitations, and no known heart murmur. She reports no cough, no wheezing, no shortness of breath, and no coughing up blood. She reports no abdominal p ain, no vomiting, normal appetite, no diarrhea, not vomiting blood, no nausea, and no constipation. She reports no incontinence, no difficulty urinating, no hematuria, and no increased frequency. She reports no muscle aches, no muscle weakness, no arthral g ias/joint pain, no back pain, and no swelling in the extremities. She reports no abnormal mole, no jaundice, and no rashes. She reports no loss of consciousness, no weakness, no numbness, no seizures, no dizziness, and no headaches. She reports no depress ion, no sleep disturbances, feeling safe in relationship, and no alcohol abuse. She reports no fatigue. She reports no swollen glands and no bruising. She reports no runny nose, no sinus pressure, no itching, no hives, and no frequent sneezing. ROS as noted in the HPI Physical Exam Patient is a 71-year-old female. Constitutional: General Appearance well nourished and developed and healthy-appearing. Level of Distress NAD. Ambulation ambulating normally. Cardiovascular: Apical Impulse not displaced or no t hrill. Heart Auscultation normal s1 and s2; no murmurs, rubs, or gallops; and RRR. Arterial Pulses no abdominal aorta bruits, femoral bruits, or popliteal bruits and 2+ bilateral, carotid 2+ bilateral, femoral 2+ bilateral, popliteal 2+ bilateral, and karla salis pedis 2+ bilateral. Edema no edema or varicosities. Lungs: Repiratory Effort no dyspnea. Percussion no hyperresonance or dullness or flatness. Auscultation no wheezing, rhonchi, or rales / crackles and breathing sounds normal, good air movement, and CTA except as noted. Abdomen: Bowl Sounds normal. Inspection and Palpation no tenderness, guarding, masses, or rebound tenderness and soft and non-distended. Liver non-tender and no hepatomegaly. Spleen non-tender and no splenomegaly. Hernia none palpable. Musculoskeletal System: Gait And Stance normal gait and stance. Digits and Nails normal nails and no cyanosis. HISTORY AND PHYSICAL [id number] JASPER BOYKIN Neurologic: Cranial Nerves grossly intact. Reflexes DTRs 2+ bilaterally throughout. Sensation grossly intact. Lymph Nodes: Lymph Nodes no cervical LAD, supraclavicular LAD, axillary LAD, or inguinal LAD. Eyes: Lids and Conjunctivae no discharge or pallor and non-injected. Pupils PERRLA. Cornea grossly intact. EOM EOMI. Lens clear. Sclera non-icteric. Neck: Neck no masses, enlarged lymph nodes, or carotid bruits and supple and trachea midline. Thyroid no enlargement or nodules and non-tender. Skin: Inspection and Palpation no rash, lesions, ulcers, jaundice, or abnormal nevi. Assessment / Plan carcinoma right upper lobe 1. Malignant tumor of lung - Right C34.81: Malignant neoplasm of overlapping sites of right bronchus and lung Discussion Notes scheduled for right pulmonary resection I have discussed her disease process with her in detail as well as the alt ernative methods of treatment. We discussed right pulmonary resection including the expected benefits and risk which include bleeding, infection, stroke, , and the imponderables. Benzoin the above and wishes to proceed with planned surgery Scheduled for 23rd of RED Anderson MD at 1218 CC: [id number] DICTATION DATE: 11/22/16 1315 DISPLAY FABRICATOR: SOFYA 11/23/16 1630 PRE [address] [place] [id number] [place] [id number]
[2016-11-27 10:11] LABS: HEMATOCRIT 38.1 % (36.0-48.0); HEMOGLOBIN 12.8 g/dL (12-16); MCH 32.1 pg (26.0-34.0); MCHC 33.6 g/dL (31.0-37.0); MCV 95.5 fL (80.0-100.0); MEAN PLATELET VOLUME 9.7 fL (7.4-10.4); RBC 3.99 10x6/uL (4.00-5.40); RDW 14.3 % (11.5-14.5); WBC 7.3 10x3/uL (4.8-10.8)
[2016-11-27 10:20] LABS: APTT 27.6 SECONDS (22.8-39.4); INR 1.05 (0.85-1.17); PROTIME 13.6 SECONDS (11.6-15.0)
[2016-11-27 10:30] LABS: ALBUMIN 3.7 g/dL (3.4-5.0); ANION GAP 15.6 mmol/L (8-16); BILIRUBIN - TOTAL 0.36 mg/dL (0.2-1.3); CALCIUM 9.3 mg/dL (8.5-10.1); CARBON DIOXIDE 25.3 mmol/L (21.0-32.0); CREATININE - SERUM 1.1 mg/dL (0.6-1.3); POTASSIUM - SERUM 3.9 mmol/L (3.5-5.1); PROTEIN - SERUM 8.3 g/dL (6.4-8.2)
[2016-11-27 10:40] LABS: APPEARANCE CLEAR (CLEAR); BILIRUBIN NEGATIVE (NEGATIVE); COLOR DK YELLOW (YELLOW); GLUCOSE NEGATIVE (NEGATIVE); KETONE NEGATIVE (NEGATIVE); LEUKOCYTE ESTERASE NEGATIVE (NEGATIVE); NITRITE NEGATIVE (NEGATIVE); PROTEIN TRACE mg/dL (NEGATIVE); SPECIFIC GRAVITY 1.025 (1.005-1.020); UROBILINOGEN NORMAL (NORMAL)
[2016-11-27 10:41] LABS: BACTERIA FEW /hpf (NONE SEEN); GRANULAR CAST OCC /lpf (NONE SEEN); HYALINE CAST 0-5 /lpf (NONE SEEN); MUCUS >1+ /lpf (NONE SEEN); WAXY CAST 0-5 /lpf (NONE SEEN)
[2016-11-27 10:42] LABS: EPITHELIAL CELLS OCC /hpf (0-5); RED CELLS - URINE RARE /hpf (0-5); WHITE CELLS - URINE 0-5 /hpf (0-5)
[2016-11-28] VITALS (29 sets, daily range): BP systolic 90–149; BP diastolic 48–77; BMI 30.6; BMI 31.8
[~2016-11-28] VITALS: Ht 162.6 cm; Wt 83.6 kg
[~2016-11-28 05:02] MED LIST changes: +ELIQUIS5 MG PO; +METOPROLOL TART50 MG PO
--- NOTE | 2016-11-28 11:29 | NUR ---
RECEIVED PT TO ROOM CV06 VIA BED, ICU MONITORS CONNECTED.
--- NOTE | 2016-11-28 11:51 | NUR ---
CXR IN PROGRESS AT BEDSIDE.
--- NOTE | 2016-11-28 12:30 | NUR ---
FAMILY AT BEDSIDE, UPDATED BY DR ROSADO.
--- NOTE | 2016-11-28 12:44 | NUR ---
DR HINKLE AND DR MADRIGAL AT BEDSIDE TO REPLACE EPIDURAL.
--- NOTE | 2016-11-28 13:00 | NUR ---
PT NOW RATES PAIN "0" ON 0-10 SCALE.
--- NOTE | 2016-11-28 13:25 | NUR ---
SPOKE WITH DR MADRIGAL VIA PHONE REGARDING PT DECREASE IN BP AND HEART RATE. NEW ORDERS RECEIVED.
--- NOTE | 2016-11-28 15:15 | NUR ---
FAMILY AT BEDSIDE, UPDATE PROVIDED. PT AWAKE AND CONVERSING WITH VISITORS. VSS. CALL LIGHT WITHIN REACH.
--- NOTE | 2016-11-28 15:30 | NUR ---
REASSESSMENT VIA FLOWSHEET, SEE FOR DETAILS.
--- NOTE | 2016-11-28 18:15 | NUR ---
NO VISITORS AT THIS TIME. VSS. PT RESTING WITH EYES CLOSED. CALL LIGHT AND ASSOCIATE DOCTOR BUTTON WITHIN REACH.
--- NOTE | 2016-11-28 19:15 | NUR ---
REPORT RECVD. CARE ASSUMED. INITIAL ASSMNT COMPLETED. SEE FLOWSHEET FOR ALL FINDINGS. AWAKE AND AOX4. PERRLA. MAEW. DENIES DISCOMFORT. EPIDURAL INTACT AND INFUSING. RESP UNLABORED. LUNG SPUNDS DIM THRU OUT. RIGHT LATERAL CHEST INCISIONAL DRESSING CDI. CHEST TUBES PATENT AND SECURED. NO AIR LEAK SEEN. MINIMAL BLOODY DRNG NOTED. SR ON THE MONITOR. SYS B/P WITHIN PARAMETERS. DOPAMINE GTT IN USE AT SET RATE. LEFT RADIAL DENIA ZEROED AND BALANCED WITH GOOD WAVE FORM SEEN. PULSES PALP. TEDS/SCDS IN USE. ABD SOFT, HYPO BS X4. F/C PATENT WITH NEO UOP. AFEBRILE. AIR OVERLAY IN USE FOR COMFORT AND SKIN INTEGRITY. TAKING ICE CHIPS NO DIFF. TURNED AND REPOSITIONED. COUGH/DB/INCENTIVE DONE WITH GOOD EFFORT. HOB UP. C/L AND COTTON FARMER IN REACH. CONT CURRENT POC.
--- NOTE | 2016-11-28 21:00 | NUR ---
NO VISITORS. TURNED AND REPOSITIONED. COUGH/DB AND INCENTIVE DONE WITH GOOD EFFORT. VSS. SR ON THE MONITOR. NO NEEDS VOICED. CONT CURRENT POC.
--- NOTE | 2016-11-28 23:15 | NUR ---
REASSESSMENT COMPLETED. SEE FLOWSHEET FOR ALL FINDINGS. AWAKE AND AOX4. PERRLA. MAEW. DENIES DISCOMFORT. EPIDURAL INTACT AND INFUSING. RESP UNLABORED. LUNG SPUNDS DIM THRU OUT. RIGHT LATERAL CHEST INCISIONAL DRESSING CDI. CHEST TUBES PATENT AND SECURED. NO AIR LEAK SEEN. MINIMAL BLOODY DRNG NOTED. SR ON THE MONITOR. SYS B/P WITHIN PARAMETERS. DOPAMINE GTT IN USE AT SET RATE. LEFT RADIAL DENAI INTACT WITH GOOD WAVE FORM SEEN. PULSES PALP. TEDS/SCDS IN USE. ABD SOFT, HYPO BS X4. F/C PATENT WITH NEO UOP. AFEBRILE. AIR OVERLAY IN USE FOR COMFORT AND SKIN INTEGRITY. TAKING ICE CHIPS NO DIFF. TURNED AND REPOSITIONED. COUGH/DB/INCENTIVE DONE WITH GOOD EFFORT. HOB UP. C/L AND MAKE UP GIRL IN REACH. CONT CURRENT POC.
[2016-11-29] VITALS (47 sets, daily range): BP systolic 84–122; BP diastolic 35–73; Ht 162.6 cm; Wt 83.6 kg
--- NOTE | 2016-11-29 01:05 | NUR ---
RESTING WITH NO DISTRESS. MINIMAL ASSIST TO REPOSITION. VSS. SR ON THE MONITOR. PAIN CONTROLLED WITH EPIDURAL. HOB UP. C/L IN REACH. CONT POC.
--- NOTE | 2016-11-29 03:05 | NUR ---
ABGS DRAWN AND RESULTED. ALL WITHIN PARAMETERS.
--- NOTE | 2016-11-29 03:15 | NUR ---
REASSESSMENT COMPLETED. SEE FLOWSHEET FOR ALL FINDINGS. AWAKE AND AOX4. PERRLA. MAEW. DENIES DISCOMFORT. EPIDURAL INTACT A INFUSING. RESP UNLABORED. LUNG SPUNDS DIM THRU OUT. RIGHT LATERAL CHEST INCISIONAL DRESSING CDI. CHEST TUBES PATENT AND SECURED. NO AIR LEAK SEEN. MINIMAL BLOODY DRNG NOTED. SR ON THE MONITOR. SYS B/P WITHIN PARAMETERS. DOPAMINE GTT IN USE AT SET RATE. LEFT RADIAL DENIA INTACT WITH GOOD WAVE FORM SEEN. PULSES PALP. TEDS/SCDS IN USE. ABD SOFT, HYPO BS X4. F/ PATENT WITH NEO UOP. AFEBRILE. AIR OVERLAY IN USE FOR COMFORT AND SKIN INTEGRITY. TAKING ICE CHIPS NO DIFF. TURNED AND REPOSITIONED. COUGH/DB/INCENTIVE DONE WITH GOOD EFFORT. HOB UP. C/L AND STRAPPER AND BUFFER IN REACH. CONT CURRENT POC.
--- NOTE | 2016-11-29 05:15 | NUR ---
TURNED AND REPOSITIONED. FAIR EFFORT WITH INCENTIVE. PULLS 500. CRUSHER OPERATOR COUGH. SPO2 96% ON O2 AT 1.5 LPM NC. DENIES DISCOMFORT. EPIDURAL INTACT. HOB UP. C/L IN REACH. CONT POC.
[2016-11-29 06:33] LABS: HEMATOCRIT 32.5 % (36.0-48.0); HEMOGLOBIN 10.8 g/dL (12-16); MCHC 33.2 g/dL (31.0-37.0); MCV 96.2 fL (80.0-100.0); MEAN PLATELET VOLUME 9.6 fL (7.4-10.4); RBC 3.38 10x6/uL (4.00-5.40); RDW 14.4 % (11.5-14.5); WBC 12.8 10x3/uL (4.8-10.8)
[2016-11-29 06:57] LABS: ALBUMIN 2.8 g/dL (3.4-5.0); ANION GAP 13.9 mmol/L (8-16); BILIRUBIN - TOTAL 0.53 mg/dL (0.2-1.3); CALCIUM 8.2 mg/dL (8.5-10.1); CARBON DIOXIDE 27.1 mmol/L (21.0-32.0); CREATININE - SERUM 1.3 mg/dL (0.6-1.3); PROTEIN - SERUM 6.9 g/dL (6.4-8.2)
--- NOTE | 2016-11-29 08:00 | NUR ---
SHIFT ASSESSMENT VIA FLOWSHEET, SEE FOR DETAILS.
--- NOTE | 2016-11-29 09:00 | NUR ---
NO VISITORS AT THIS TIME. PT REPOSITIONED, VSS. CALL LIGHT WITHIN REACH.
--- NOTE | 2016-11-29 10:33 | NUR ---
RT AT BEDSIDE FOR BREATHING TREATMENT. PT REACHING 750 ON I/S WITH ENCOURAGEMENT.
--- NOTE | 2016-11-29 11:00 | NUR ---
REASSESSMENT VIA FLOWSHEET, SEE FOR DETAILS.
--- NOTE | 2016-11-29 12:00 | NUR ---
PT'S SISTER AT BEDSIDE, UPDATE PROVIDED. VSS. PT REPOSITIONED. CALL LIGHT WITHIN REACH.
--- NOTE | 2016-11-29 15:00 | NUR ---
REASSESSMENT VIA FLOWSHEET, SEE FOR DETAILS.
--- NOTE | 2016-11-29 18:56 | NUR ---
MONITOR ALARM, PT NOTED TO BE IN A FIB AT A RATE OF 137 WITH A BP 92/59.
--- NOTE | 2016-11-29 19:00 | NUR ---
EKG AND ABG OBTAINED.
--- NOTE | 2016-11-29 19:07 | NUR ---
DR ROSADO NOTIFIED AND NEW ORDERS RECEIVED.
--- NOTE | 2016-11-29 19:26 | NUR ---
SPOKE WITH DR SINGLETON VIA PHONE, NOTIFIED OF CONSULT AND PT STATUS REPORTED. ALSO RELAYED TO HIM PT HAS PREVIOUSLY BEEN SEEN BY DR DELEON FOR A JUNCTIONAL RHYTHM OF 70. NEW ORDERS RECEIVED AND REPORTED TO YULIANA DICK RN (ONCOMING NURSE).
--- NOTE | 2016-11-29 19:30 | NUR ---
SHIFT ASSESSMENT COMPLETED. SEE ASSESSMENT FLOWSHEET. RT PUPIL SLIGHTLY LARGER THAN LEFT BUT REACTIVE TO LIGHT. DENIES THIS BEING HER NORM. STATES "DOESN'T SURPRISE ME TO FIND SOMETHING ELSE WRONG". RT IJ CVL WITH PLASMLAYTE @ 30ML/HR AND DOPAMINE @ 3 MCG/KG/MIN. LEFT RADIAL A-LINE INTACT. RT SC AREA INFUSAPORT NOTED BUT NOT ACCESSED. RT LATERAL CHEST TUBES X2 WITH SEROUS DRAINAGE NOTED. ANTERIOR TUBE WITH SMALL AIR LEAK NOTED. HARDEEP NGUYEN REPORTS DR. ROSADO AWARE. MAGDALENO CATHETER TO GRAVITY DRAINAGE WITH CLEAR, NEO URINE. TEDS AND SCD'S TO BIALTERAL LE'S. PALPABLE PERIPHERAL PULSES X4 EXT INTACT. HR 130-140'S IN AFIB. WILL GIVE PO SOTALOL JUST ORDERED. WILL MONITOR.
--- NOTE | 2016-11-29 19:43 | NUR ---
PO SOTALOL GIVEN.
--- NOTE | 2016-11-29 21:30 | NUR ---
HR DECREASED TO THE 120'S. DENIES NEEDS. WILL MONITOR.
--- NOTE | 2016-11-29 22:15 | NUR ---
ON THE CALL LIGHT. DENIES NEEDS. SHE STATES SHE PRESSED THE WRONG BUTTON.
--- NOTE | 2016-11-29 23:30 | NUR ---
REASSESSMENT COMPLETED. SEE ASSESSMENT FLOWSHEET. TURNED TO RT SIDE. NEW PRESSURE BAG APPLIED TO CVP/A-LINE. RE-ZEROED PRESSURE LINES. ORANGE JUICE GIVEN PER REQUEST. WILL MONITOR.
[2016-11-30] VITALS (45 sets, daily range): BP systolic 85–123; BP diastolic 19–71
--- NOTE | 2016-11-30 00:18 | NUR ---
DR. SINGLETON ANSWERING SERVICE CALLED REGARDING HR NOT IMPROVING.
--- NOTE | 2016-11-30 00:42 | NUR ---
DIGOXIN 0.5MG GIVEN IV PUSH SLOWLY. HR 131 AFIB. WILL MONITOR.
--- NOTE | 2016-11-30 02:30 | NUR ---
EYES CLOSED. NO ACUTE DISTRESS NOTED. LAYING ON HER LEFT SIDE. AFIB REMAINS ON THE MONITOR.
--- NOTE | 2016-11-30 03:50 | NUR ---
PORTABLE CHEST XRAY COMPLETED. TOLERATED WELL. REASSESSMENT COMPLETED. SEE ASSESSMENT FLOWSHEET. NO NEW ACUTE CHANGES NOTED. OFFERED BATH. ACCEPTED. WILL BEGIN SHORTLY.
--- NOTE | 2016-11-30 04:30 | NUR ---
COMPLETE BED BATH AND LINEN CHANGE COMPLETED. I & O'S ASSESSED. MAGDALENO CATHETER CARE COMPLETED. MAKING JOKES. DENIES NEEDS AT THIS TIME. WILL MONITOR.
--- NOTE | 2016-11-30 05:36 | NUR ---
CARDIAC MONITORING READING ASYSTOLE. 2.1 SECOND PAUSE NOTED AND RHYTHM CHANGES FROM AFIB TO SINUS BRADYCARDIC TO SINUS RHYTHM FOR A SHORT PERIOD OF TIME. RHYTHM THEN CHANGED TO A TYPE OF SVT RHYTHM THEN BACK TO UNCONTROLLED AFIB. WAS ASLEEP AND DID NOT NOTICE THE CHANGE. DENIES NEEDS AT THIS TIME. WILL MONITOR.
--- NOTE | 2016-11-30 06:10 | NUR ---
AM LAB SPECIMEN DRAWN FROM LEFT RADIAL A-LINE DUE TO RT IJ NOT PULLING BACK ENOUGH BLOOD. WILL MONITOR.
[2016-11-30 06:43] LABS: HEMATOCRIT 29.8 % (36.0-48.0); HEMOGLOBIN 9.9 g/dL (12-16); MCH 31.9 pg (26.0-34.0); MCHC 33.2 g/dL (31.0-37.0); MCV 96.1 fL (80.0-100.0); MEAN PLATELET VOLUME 9.1 fL (7.4-10.4); RBC 3.1 10x6/uL (4.00-5.40); RDW 13.2 % (11.5-14.5); WBC 11.8 10x3/uL (4.8-10.8)
[2016-11-30 06:56] LABS: ALBUMIN 2.5 g/dL (3.4-5.0); ANION GAP 9.8 mmol/L (8-16); BILIRUBIN - TOTAL 0.7 mg/dL (0.2-1.3); CALCIUM 8.4 mg/dL (8.5-10.1); CARBON DIOXIDE 28.2 mmol/L (21.0-32.0); CREATININE - SERUM 1.1 mg/dL (0.6-1.3); PROTEIN - SERUM 6.5 g/dL (6.4-8.2)
--- NOTE | 2016-11-30 08:40 | NUR ---
A-LINE DC'D PER ORDER. MANUAL PRESSURE APPLIED TIMES 5 MINUTES. CLEAR DRESSING APPLIED. PT INSTRUCTED TO REPORT S/SX OF BLEEDING OR SWELLING.
--- NOTE | 2016-11-30 12:20 | NUR ---
VISITOR AT BEDSIDE. DENIES NEEDS.
--- NOTE | 2016-11-30 13:17 | NUR ---
* Is the patient Alert and Oriented? Yes 0 * How many steps to enter\exit or inside your home? 3 0 * PCP Dr. Gannon 0 * [facility] on [address] 0 * Preadmission Environment Home with Family 0 * ADLs Independent 0 * Equipment Nebulizer 0 * List name and contact numbers for known caregivers / representatives who currently or will assist patient after discharge: [place] [phone] 0 * Additional services required to return to the preadmission environment? No 0 * Can the patient safely return to the preadmission environment? Yes 0 * Has this patient been hospitalized within the prior 30 days at any hospital? No Patient Name: JASPER HENDERSON Admission Status: Elective Accout number: [id number] Admission Date: 11-28-2016 : 1945 Admission Diagnosis:MALIGNANT NEOPLASM OF UPPER LOBE, RIGHT BRONCHUS OR YOAN Attending: RED ROSADO Current LOS: 2 Anticipated DC Date: 12-03-2016 Planned Disposition: Home Primary Insurance: MEDICARE A & B Discharge Planning Comments: CM met with patient to assess dc plans/needs. Patient states she lives with her son & daughter in law. She reports she was independent with all ADL's & IADL's. She does not use any assistive devices for mobility. She states she has not had home health services in the past. She states she has a home nebulizer. At dc, she plans to return home with her family. No needs identified or verbalized at this time. CM will follow. Tentering Machine Feeder: Valeri Falcon
--- NOTE | 2016-11-30 19:30 | NUR ---
RECEIVED CARE OF PT, ASSESSMENT PER FLOWSHEET. PT ALERT AND ORIENTED X 4, SITTING UP IN BED IN NO APPARENT DISTRESS, EXP WHEEZES AUSCULTATED BILAT WITH DIM BASES, HR SR WITH PAC'S AT A RATE OF 72, PPP, CRITICORE MAGDALENO PATENT WITH NEO URINE DRAINING, RT LAT CT X 2 TO 20 OF SXN, AIR LEAK NOTED TO ANT-MD AWARE, SEROUS DRAINAGE IN TUBING. PT POSITIONED FOR COMFORT, PULLING 500 ON IS, PROD COUGH NOTED-SPUTUM NOT SEEN.
--- NOTE | 2016-11-30 21:30 | NUR ---
NO VISITORS PRESENT AT THIS TIME, PT RESTING IN BED WATCHING TV, VSS.
--- NOTE | 2016-11-30 23:30 | NUR ---
REASSESSMENT PER FLOWSHEET, NO ACUTE CHANGES NOTED. PT ASSISTED TO COMFORTABLE POSITION, CALL LIGHT IN REACH, BED LOW, DENIES ANY OTHER NEEDS, CONT POC.
[2016-12-01] VITALS (24 sets, daily range): BP systolic 89–118; BP diastolic 35–67
--- NOTE | 2016-12-01 01:20 | NUR ---
PT NOTED TO BE IN ATRIAL FIB AT A RATE IN THE LOW 100'S, SBP 109, SERUM POTASSIUM DRAWN AND SENT TO LAB.
--- NOTE | 2016-12-01 01:30 | NUR ---
PT SELF CONVERTED TO ST ON CM, ALL OTHER VSS, WILL MONITOR CLOSELY.
--- NOTE | 2016-12-01 02:18 | NUR ---
PT 100% ON 1NC, PLACED TO RA PER RT, HR REMAINS ST ON CM.
--- NOTE | 2016-12-01 03:12 | NUR ---
DR ROSADO CALLED REGARDING RHYTHM CHANGES AND DECREASED BP, LAB RESULTS REVIEWED, ORDERS RECEIVED.
--- NOTE | 2016-12-01 03:26 | NUR ---
40 MEQ KCL AND 40 MG PO SOTALOL INITIATED PER MD ORDER.
--- NOTE | 2016-12-01 05:42 | NUR ---
PT CONVERTED TO SR AT A RATE OF 64 ON CM, VSS, CONT TO MONITOR.
[2016-12-01 06:43] LABS: HEMATOCRIT 29.6 % (36.0-48.0); HEMOGLOBIN 9.5 g/dL (12-16); MCH 31.7 pg (26.0-34.0); MCHC 32.1 g/dL (31.0-37.0); MCV 98.7 fL (80.0-100.0); RDW 13.7 % (11.5-14.5); WBC 9.8 10x3/uL (4.8-10.8)
[2016-12-01 07:03] LABS: ALBUMIN 2.2 g/dL (3.4-5.0); BILIRUBIN - TOTAL 0.5 mg/dL (0.2-1.3); CALCIUM 8.2 mg/dL (8.5-10.1); CARBON DIOXIDE 29.2 mmol/L (21.0-32.0); CREATININE - SERUM 0.9 mg/dL (0.6-1.3); PROTEIN - SERUM 6.2 g/dL (6.4-8.2)
[2016-12-01 07:04] LABS: POTASSIUM - SERUM 4.2 mmol/L (3.5-5.1)
--- NOTE | 2016-12-01 07:12 | NUR ---
DR ROSADO CALLED REGARDING DECREASED BP, ORDERS RECEIVED.
--- NOTE | 2016-12-01 13:32 | NUR ---
NOTED TO BE IN FIB/FLUTTER. WILL CHECK POTASSIUM LEVEL.
--- NOTE | 2016-12-01 14:28 | NUR ---
DR. ROSADO NOTIFIED OF RHYTHM CHANGE AND CURRENT ORDERS. WILL CHECK DIGOXIN LEVEL PRIOR TO ADMINISTRATION.
--- NOTE | 2016-12-01 15:08 | NUR ---
DR. ROSADO NOTIFIED OF LAB VALUES. ORDERS RECIEVED.
--- NOTE | 2016-12-01 15:55 | NUR ---
COMPLETE BED BATH AND LINEN CHANGE. SHAMPOO CAP PROVIDED. PERSONAL HYGIENE PRODUCTS USED.
--- NOTE | 2016-12-01 16:52 | NUR ---
PT CONVERTED TO SR.
--- NOTE | 2016-12-01 17:40 | NUR ---
PT CONVERTED BACK TO AFIB. DR. ROSADO TO BE NOTIFIED AT 1900 PER REQUEST.
--- NOTE | 2016-12-01 18:50 | NUR ---
DR. ROSADO NOTIFIED OF AFIB. ORDERS FOR K+ REPLACEMENT RECIEVED.
--- NOTE | 2016-12-01 19:10 | NUR ---
RESUMED CARE OF PT, ASSESSMENT PER FLOWSHEET. PT IN UCAF AT A RATE OF 101, DR ROSADO AWARE, PT POSITIONED FOR COMFORT SUPPORTED WITH PILLOWS, VSS, WILL MONITOR.
--- NOTE | 2016-12-01 19:21 | NUR ---
PT CONVERTED TO SR IN THE 60'S ON CM
--- NOTE | 2016-12-01 21:20 | NUR ---
NO VISITORS PRESENT AT THIS TIME, PT DENIES ANY NEEDS, VSS, PULLING AROUND 500 ON IS WITH GOOD INSPIRATORY EFFORT, WILL CONT TO ENCOURAGE.
--- NOTE | 2016-12-01 23:15 | NUR ---
REASSESSMENT PER FLOWSHEET, SR ON CM AT 64, POSITIONED FOR COMFORT, CONT POC.
[2016-12-02] VITALS (24 sets, daily range): BP systolic 101–131; BP diastolic 40–66
--- NOTE | 2016-12-02 01:50 | NUR ---
PT RESTING IN BED WITH EYES CLOSED, BREATHING EVEN AND UNLABORED, VSS, CONT TO MONITOR.
--- NOTE | 2016-12-02 03:20 | NUR ---
REASSESSMENT PER FLOWSHEET, HR SR ON CM, POSITIONED FOR COMFORT, CONT POC.
[2016-12-02 06:04] LABS: BASOPHILS 0.3 % (0-2); EOSINOPHILS 4.3 % (0-7); HEMATOCRIT 28.4 % (36.0-48.0); IMMATURE GRANULOCYTES 0.6 % (0-5); LYMPHOCYTES 24.5 % (15-50); MCH 30.9 pg (26.0-34.0); MCHC 31.7 g/dL (31.0-37.0); MCV 97.6 fL (80.0-100.0); MEAN PLATELET VOLUME 9.4 fL (7.4-10.4); MONOCYTES 10.2 % (2-11); NEUTROPHILS 60.1 % (40-80); PLATELET COUNT 225 10x3/uL (130-400); RBC 2.91 10x6/uL (4.00-5.40); RDW 13.7 % (11.5-14.5); WBC 7.7 10x3/uL (4.8-10.8)
--- NOTE | 2016-12-02 06:12 | NUR ---
NO VISITORS PRESENT AT THIS TIME, PT RESTING IN BED WITH EYES CLOSED, VSS.
[2016-12-02 06:16] LABS: ANION GAP 8.2 mmol/L (8-16); CALCIUM 8.6 mg/dL (8.5-10.1); CARBON DIOXIDE 30.6 mmol/L (21.0-32.0); CREATININE - SERUM 0.9 mg/dL (0.6-1.3); POTASSIUM - SERUM 3.8 mmol/L (3.5-5.1)
--- NOTE | 2016-12-02 08:50 | NUR ---
PT EDUCATED ON I.S. PULLS APPROX 750 ON I.S.
--- NOTE | 2016-12-02 12:28 | NUR ---
CHEST TUBE DC'D PER DR. ROSADO. [facility] PER VERBAL ORDER. WILL PAGE ANESTHESIA FOR EPIDURAL DC.
--- NOTE | 2016-12-02 13:07 | NUR ---
DR. HINKLE NOTIFIED OF ORDER TO DC EPIDURAL. STATES HE WILL BE HERE IN APPROX 30 MINUTES.
--- NOTE | 2016-12-02 14:58 | NUR ---
UP TO CHAIR PER P.T.
--- NOTE | 2016-12-02 19:00 | NUR ---
REPORT RECEIVED AND ASSESSMENT COMPLETED. SEE FLOWSHEET FOR FULL DETAILS. PT IS POST OP RUL RESECTION BY DR ROSADO. AT THIS TIME THE POSTERIOR CHEST TUBE HAS BEEN REMOVED, AND THE ANTERIOR REMAINS. LUNG SOUNDS ARE CTA WITH THE EXCEPTION OF A SMALL CRACKLE IN THE AARON. CHEST TUBE DRAINAGE IS SEROUS AT THIS TIME. 20 SM SUCTION. NO LEAK NOTED AT THIS TIME. PT HAS RIGHT IJ CENTRAL LINE. SALINE LOCKED. CDI. WILL MONITOR THROUGHOUT SHIFT.
--- NOTE | 2016-12-02 21:00 | NUR ---
2100 MEDS GIVEN. PT ASSISTED TO BSC. 350 OUT. NO C/O PAIN. PT AMBULATES WELL WITH ASSISTANCE. VSS. WILL MONITOR
--- NOTE | 2016-12-02 23:00 | NUR ---
REASSESSMENT COMPLETED. SEE FLOWSHEET FOR FULL DETAILS. PT REPORTED DISCOMFORT AT CHEST TUBE SITE. PRN PAIN MEDICATION GIVEN. NO OTHER CHANGES TO REPORT.
[2016-12-03] VITALS (24 sets, daily range): BP systolic 107–139; BP diastolic 32–75
--- NOTE | 2016-12-03 01:00 | NUR ---
PT SLEEPING IN ROOM. NO CHANGES IN STATUS. CALL LIGHT IN REACH, BED IN LOW POSITION. VSS. WILL MONITOR
--- NOTE | 2016-12-03 03:00 | NUR ---
REASSESSMENT COMPLETED. SEE FLOWSHEET FOR FULL DETAILS. VSS. WILL CONTINUE TO MONITOR
--- NOTE | 2016-12-03 05:00 | NUR ---
PT COMPLAINS OF CHEST TUBE DISCOMFORT. PRN MED GIVEN FOR PAIN. WILL REASSESS.
[2016-12-03 06:32] LABS: BASOPHILS 0.4 % (0-2); EOSINOPHILS 3.7 % (0-7); HEMATOCRIT 29.6 % (36.0-48.0); HEMOGLOBIN 9.7 g/dL (12-16); IMMATURE GRANULOCYTES 0.8 % (0-5); LYMPHOCYTES 23.9 % (15-50); MCH 31.6 pg (26.0-34.0); MCHC 32.8 g/dL (31.0-37.0); MCV 96.4 fL (80.0-100.0); MEAN PLATELET VOLUME 9.7 fL (7.4-10.4); MONOCYTES 13.8 % (2-11); NEUTROPHILS 57.4 % (40-80); PLATELET COUNT 254 10x3/uL (130-400); RBC 3.07 10x6/uL (4.00-5.40); RDW 13.4 % (11.5-14.5); WBC 7.7 10x3/uL (4.8-10.8)
[2016-12-03 06:39] LABS: ANION GAP 11.6 mmol/L (8-16); CALCIUM 8.5 mg/dL (8.5-10.1); CARBON DIOXIDE 30.4 mmol/L (21.0-32.0); MAGNESIUM - SERUM 1.7 mg/dL (1.8-2.4); PHOSPHOROUS 4.6 mg/dL (2.5-4.9)
--- NOTE | 2016-12-03 08:00 | NUR ---
PT ASSISTED UP TO CHAIR AT BEDSIDE FOR BREAKFAST. BREAKFAST TRAY PROVIDED. NO OTHER NEEDS VOICED. CALL LIGHT IN REACH.
--- NOTE | 2016-12-03 10:34 | NUR ---
NUTRITION F/U CHART REVIEWED. TOLERATING REG DIET PER INTAKE RECORDS. WILL CONTINUE TO PROVIDE DIET. MONITOR PT PROGRESS. RD FOLLOWING
--- NOTE | 2016-12-03 12:54 | NUR ---
PT ASSISTED UP TO BEDSIDE TOILET. URINATED. HAS HAD LUNCH TRAY PROVIDED. CONSUMED HALF. VISITOR AT BEDSIDE FOR NOONTIME VISITATION
--- NOTE | 2016-12-03 14:51 | NUR ---
DR ROSADO HAS BEEN IN TO SEE PATIENT AND REMOVE RIGHT ANTERIOR CHEST TUBE. BETADINE AND 4X4 GAUZE TO SITE AND COVERED WITH HYPAFIX TAPE. PT CURRENTLY RESTING.
--- NOTE | 2016-12-03 16:49 | NUR ---
PT ASSISTED UP TO CHAIR AT BEDSIDE FOR DINNER. DINNER TRAY PROVIDED. DENIES ANY OTHER NEEDS.
--- NOTE | 2016-12-03 17:37 | NUR ---
PT ASSISTED UP TO TOILET. 450 U/O NOW BACK IN BED. CALL LIGHT IN REACH. SIDE RAILS X3
--- NOTE | 2016-12-03 19:30 | NUR ---
REPORT REC'D AND CARE ASSUMED, PT REC'D LYING IN BED ON ROOM AIR, AWAKE, ALERT, ORIENTED WATCHING TV, RIJ CENTRAL LINE DRSG CDI, ALL PORTS SALINE LOCKED, RIGHT UPPER LATERAL CHEST INCISION OPEN TO AIR, NO REDNESS OR DRAINAGE, RIGHT LOWER LATERAL DRSG TO PREVIOUS CT INSERTION SITE, CDI, ABD SOFT BS X 4, PT MAEE, BILAT TEDS INTACT, SCDS OFF AT THIS TIME, AIR OVERLAY MATTRESS IN USE, PT DENIES NEEDS, SR UP X 2, BED IN LOW POSITION, CALL LIGHT IN REACH.
--- NOTE | 2016-12-03 21:00 | NUR ---
EVENING MEDS GIVEN, PT REQUESTING PAIN PILL, RATING PAIN "7-8" ON 0-10 PAIN SCALE, PERCOCET PROVIDED ON REQUEST, NO VISITORS IN AT THIS TIME.
--- NOTE | 2016-12-03 21:30 | NUR ---
PT ASSISTED UP X 1 ASSIST TO BATHROOM ,VOIDED APPROX 250CC YELLOW URINE, BACK TO BED WITHOUT DIFFICULTY, FURHTER NEEDS DENIED.
--- NOTE | 2016-12-03 22:10 | NUR ---
RT AT BS FOR BREATHING TX, PT PULLING 750 ON IS, WILL MONITOR FOR CHANGES.
--- NOTE | 2016-12-03 23:15 | NUR ---
REASSESSMENT COMPLETED, PT RESTING EYES CLOSED, RESP EVEN AND UNLABORED, VSS, WILL CONT TO MONITOR FOR CHANGES.
[2016-12-04] VITALS (24 sets, daily range): BP systolic 107–140; BP diastolic 35–97
--- NOTE | 2016-12-04 02:00 | NUR ---
NO CHANGES IN STATUS THIS TIME.
--- NOTE | 2016-12-04 04:15 | NUR ---
PT AWAKENED AND TAKEN TO RADIOLOGY FOR PA AND LATERAL.
--- NOTE | 2016-12-04 04:35 | NUR ---
PT BACK FROM RADIOLOGY, ASSISTED PT TO BATHROOM VOIDED 200 CC CONCENTRATED URINE, PT ASSISTED BACK TO BED REQUESTING PAIN PILL FOR PAIN ON RIGHT SIDE WITH MOVEMENT, REPOSITIONED UP IN BED, DENIES FURTHER NEEDS.
--- NOTE | 2016-12-04 07:00 | NUR ---
PT REPORT REC'D, PT CARE ASSUMED, PT RESTING WITH EYES CLOSED, NO C/O PAIN, VSS, ROOM AIR. RIGHT JUGULAR CVL, S/L'ED, DRESSING CDI. RIGHT UPPER LATERAL CHEST INCISION, OPEN TO AIR, NO DRAINAGE NOTED. RIGHT LOWER LATERAL CHEST PREVIOUS CT SITE, DRESSING CDI. UP TO BATHROOM NEEDED. SHIFT ASSESSMENT COMPLETED, SEE FLOW SHEET. ROOM FREE OF CLUTTER, CALL LIGHT LIGHT IN REACH, BED ALARM ACTIVE, BED LOCKED IN LOWEST POSITION, WILL CONTINUE TO MONITOR PT.
--- NOTE | 2016-12-04 07:55 | NUR ---
DR. ROSADO AT THE BEDSIDE.
--- NOTE | 2016-12-04 08:00 | NUR ---
TRANSFERRED PT FROM BED TO CHAIR, PT TOLERATED WELL. BREAKFAST SERVED, VSS, WILL CONITNUE TO MONITOR PT.
--- NOTE | 2016-12-04 09:07 | NUR ---
PT SITTING UP IN CHAIR, NO C/O PAIN, VSS, WILL CONTINUE TO MONTIOR PT.
--- NOTE | 2016-12-04 09:51 | CN ---
PATIENT NAME:JSAPER HENDERSON MEDICAL RECORD: [id number] : 47 LOCATION:[facility] ADMIT DATE: 11/28/16 ACCOUNT: [id number] CONSULTING PHYSICIAN: BRUCE SINGLETON MD REFERRING PHYSICIAN: RED ROSADO MD DATE OF CONSULTATION: 11/30/2016 Cardiology Consultation DIAGNOSES: 1. Atrial fibrillation with rapid ventricular response. 2. Status post laminectomy. 3. Lung cancer. 4. History of atrial fibrillation. HISTORY OF PRESENT ILLNESS: Mrs. Henderson presented with lung cancer. She underwent laminectomy. She went into atrial fibrillation with rapid response. She has a history of atrial fibrillation. She also has history of junctional bradycardia with treatment of the atrial fibrillation. She was given p.o. sotalol as well as IV digoxin. She is now converted to sinus rhythm. She is sinus in the 70s. She has had no bradycardia or junctional rhythm at this time. PHYSICAL EXAMINATION: GENERAL APPEARANCE: Well-nourished, well-developed, appears stated age. Level of distress, comfortable. PSYCHIATRIC: Mental status, alert, normal affect. Orientation, oriented to time, place and person. EYES: Lids and conjunctiva, noninjected. No discharge, no pallor. ENT: Lips, teeth, gums, normal dentition. Oropharynx, no cyanosis, no pallor. NECK: Carotid arteries, bilateral normal upstroke, no bruits, no thrills. JUGULAR VEINS: No jugular venous pressure or distention. CERVICAL LYMPH NODES: Nontender, nonenlarged. THYROID: Not enlarged. Nontender. No nodules. LUNGS: Respiratory effort, unlabored. CHEST: Normal curvature. No thoracic deformity. No chest wall tenderness. Percussion, resonant. Auscultation, clear. No wheezes, no rales, no rhonchi. CARDIOVASCULAR: Precordial exam, nondisplaced. No heaves or pericardial thrills. Rate and rhythm, regular. Heart sounds, normal S1, normal S2. No S3, no gallop, no rub. Systolic murmur, not heard. Diastolic murmur, not heard. EXTREMITIES: No cyanosis, no edema. Peripheral pulses, full and equal in all extremities, except as noted. No bruits appreciated. ABDOMEN: Soft, nondistended. Normal aorta. No bruit. Nontender. No masses. Liver, nontender, no hepatomegaly. Spleen, nontender, no splenomegaly. MUSCULOSKELETAL: No joint tenderness. No joint swelling. No erythema. NEUROLOGICAL: Normal gait, normal strength, normal tone. SKIN: Warm and dry. REVIEW OF SYSTEMS: The patient reports easy bruising but reports no swollen glands. The patient reports no fever, no night sweats, no significant weight gain, no significant weight loss. No significant exercise tolerance. The patient reports no dry eyes, no irritation, no vision change. Patient reports no difficulty hearing and no ear pain. Patient reports no frequent nose bleeds or nose and sinus problems. Patient reports on arm pain on exertion. No shortness of breath while lying down. No history of heart murmur. Patient reports no cough, no wheezing or coughing up blood. Patient reports no CONSULT REPORT [id number] ASHUTOSHJASPER abdominal pain, no vomiting. Normal appetite. No diarrhea and not vomiting blood. No nausea and no constipation. Patient reports no incontinence. No difficulty urinating. No hematuria. No increased frequency. Patient reports no muscle aches. No weakness, no arthralgias, no back pain. No swelling of the extremities. Patient reports no abnormal mole, no jaundice, no rashes. Reports no loss of consciousness. No weakness and no numbness. No seizures, dizziness, or headaches. The patient reports no depression, no sleep disturbance, feeling safe in a relationship and no alcohol abuse. Patient reports on fatigue. Reports no runny nose or sinus pressure. No itching, no hives, and no frequent sneezing. OVERALL IMPRESSIOM: We will decrease the sotalol to 80 mg b.i.d., would continue this in place of the metoprolol as she is high risk of going back into the atrial fibrillation, but hopefully with the sotalol, she will remain in sinus rhythm. TRANSINT:[id number] Voice Confirmation ID: [id number] DOCUMENT ID: [id number] BRUCE SINGLETON MD at 0951 CC: [id number] DICTATION DATE: 11/30/1628 ELECTRONIC CALIBRATION TECHNICIAN: 11/30/16 1418 [facility] IN [place] [id number] [place] [address]
--- NOTE | 2016-12-04 10:44 | NUR ---
Patient Name: JASPER BOYKIN Encounter No: [id number] : 1945 Primary Insurance: MEDICARE A & B Anticipated DC Date: 12-03-2016 Planned Disposition: Home DCP follow-up note: Anticipate DC soon. Offered HH referral - declines at this time. Patient and family in agreement with discharge plan. No changes to plan. Case management will follow and assist as needed. Valeri Falcon
--- NOTE | 2016-12-04 11:00 | NUR ---
PT SITTING UP IN CHAIR, NO C/O PAIN, VSS, ROOM AIR. REASSESSMENT COMPLETED, SEE FLOW SHEET. ROOM FREE OF CLUTTER, CALL LIGHT IN REACH, WILL CONTINUE TO MONITOR PT.
--- NOTE | 2016-12-04 11:15 | NUR ---
PHYSICAL THERAPY IN WITH PT, PT AMBULATED APPROX 250FT, PT TOLERATED WELL, WILL CONTINUE TO MONITOR PT.
--- NOTE | 2016-12-04 12:20 | NUR ---
PT FAMILY AT THE BEDSIDE, ALL QUESTIONS ANSWERED, VSS, WILL CONTINUE TO MONTIOR PT.
--- NOTE | 2016-12-04 15:00 | NUR ---
PT FAMILY AT THE BEDSIDE, ALL QUESTIONS ANSWERED, VSS, REASSESSMENT COMPLETED, SEE FLOW SHEET. ROOM FREE OF CLUTTER, CALL LIGHT IN REACH, WILL CONTINUE TO MONITOR PT.
--- NOTE | 2016-12-04 15:44 | OP ---
PATIENT NAME: JASPER BOYKIN MEDICAL RECORD: [id number] :[birth year] LOCATION:[facility] ADMISSION DATE:11/28/16 SURGEON: BRUNO ROSADO MD DATE OF OPERATION: 11/28/2016 SURGEON: Bruno Rosado MD. ANESTHESIA: General endotracheal, Dr. Atkinson. OPERATION PERFORMED: 1. Right upper lobe resection. 2. Right mediastinal radical lymphadenectomy. 3. Flexible fiberoptic bronchoscopy. PREOPERATIVE DIAGNOSIS: Carcinoma of the right upper lobe. POSTOPERATIVE DIAGNOSIS: Carcinoma of the right upper lobe. INDICATION FOR OPERATION: Carcinoma of the right upper lobe, status post chemotherapy. FINDINGS OF THE OPERATION: The tumor is in the right upper lobe with adhesions to the superior segment of the lower lobe. There was also attachment to the chest wall; however, I did not see any palomo invasion of the tumor. Biopsy of the chest wall was negative for malignancy. There were multiple large mediastinal nodes anthracotic. ESTIMATED BLOOD LOSS: Less than 150 mL. DESCRIPTION OF PROCEDURE: After informed consent, adequate preoperative medication evaluation, the patient was brought to the operating room, placed on the table in the supine position. After induction of general endotracheal anesthesia and application of appropriate monitoring devices, the patient underwent flexible fiberoptic bronchoscopy and placement of a double lumen tube. The patient was then turned in a left lateral decubitus position. The pressure points and nerves were protected. The right chest was then prepped and draped in a sterile field, utilizing Betadine scrub, alcohol and Betadine solution. A Betadine-impregnated drape was also used. A small posterolateral thoracotomy incision was made and dissection carried down the fascia. Hemostasis maintained with electrocautery. Fifth interspace was identified and opened. The lung was deflated. The lung was examined and the fibrinous adhesions were removed with electrocautery. The more dense adhesions were also taken with the electrocautery and part of the chest wall was removed as well, biopsy of the chest wall did not demonstrate tumor. Hemostasis was assured. The hilum was then dissected anteriorly, superiorly and posteriorly. The vein to the upper lobe was then mobilized and surrounded with a vessel loop. Attention was then turned toward the upper lobe trunk. This was surrounded with a vessel loop and divided with an Endo-MARK stapler. The same was performed on the vein to the upper lobe. Attention was then turned towards the pulmonary artery, which was dissected up to the middle lobe and to the fissure. The fissure was then dissected and connected to the upper portion of the dissection. The minor fissure was then developed with an Endo-MARK stapler. The posterior fissure was also developed, but part of the superior segment of the lower lobe was taken with the dissection due to dense adhesions. Attention was then turned towards OPERATIVE REPORT [id number] JASPER BOYKIN the bronchus. A TA 34.8 stapler was used to clamp the bronchus. The lung was tested, the middle and lower lobes inflated nicely. The bronchus was transected and the specimen was sent to pathology. Utilizing sharp and blunt dissection, the right mediastinal lymphadenectomy was performed removing nodes at R7, R10, R4, R3 and R8. Hemostasis was assured. Wound was irrigated with copious amounts of sterile water and antibiotic. Hemostasis was assured. Two #28 chest tubes were placed in the right hemithorax, one anteriorly and superiorly, one inferiorly and posteriorly. Chest was again irrigated. Instrument count and sponge counts were correct times 2. Chest was closed in layers utilizing #2 Vicryl pericostal sutures, #1 Vicryl on the muscle, 3-0 Vicryl on superficial. Subcutaneous tissue and skin were approximated with 3-0 subcuticular Monocryl. Sterile dressings were applied. The patient tolerated the procedure well and was transferred to the CV ICU in satisfactory condition. TRANSINT:[id number] Voice Confirmation ID: [id number] DOCUMENT ID: [id number] BRUNO ROSADO MD at 1544 CC: [id number] DICTATION DATE: 11/28/16 1122 CAKE DECORATOR: 11/28/16 1635 [facility] IN [place] [id number] [place] [id number]
--- NOTE | 2016-12-04 18:36 | NUR ---
PT FAMILY AT THE BEDSIDE, ALL QUESTIONS ANSWERED, VSS, WILL CONTINUE TO MONITOR PT.
--- NOTE | 2016-12-04 19:30 | NUR ---
REPORT REC'D AND CARE ASSUMED, REC'D PT ON ROOM AIR, AWAKE, ALERT, ORIENTED WATCHING TV, RIJDL DRSG CDI, PORTS SALINE LOCKED, RIGHT UPPER LATERAL CHEST INCISION OPEN TO AIR, NO REDNESS OR DRAINAGE, RIGHT LATERAL DRSG CDI TO PREVIOUS CT INSERTION SITE, MAEE, TEDS/SCDS OFF PER PT COMPLAINT OF BEING TO HOT, AIR OVERLAY MATTRESS IN USE, PT DENIES NEEDS, SR UP X 2, VISIBLE TO NURSES STATION.
--- NOTE | 2016-12-04 21:15 | NUR ---
EVENING MEDS GIVEN, PT REQUESTING PAIN PILL, PERCOCET GIVEN PO FOR COMPLAINTS OF PAIN, PT ASSISTED UP TO BATHROOM THEN BACK TO BED, DENIES FURTHER NEEDS.
--- NOTE | 2016-12-04 23:20 | NUR ---
REASSESSMENT COMPLETED, BBS CLEAR TO AUSCULTATION, PT RESTING ON LEFT SIDE, PT DENIES PAIN OR NEEDS AT THIS TIME, VSS, WILL MONITOR FOR CHANGES.
[2016-12-05] VITALS (20 sets, daily range): BP systolic 90–156; BP diastolic 39–68
--- NOTE | 2016-12-05 01:30 | NUR ---
PT RESTING NO LEFT SIDE EYES CLOSED, VSS, VISIBLE TO NURSES STATION.
--- NOTE | 2016-12-05 03:10 | NUR ---
REASSESSMENT COMPLETED, PT REQUESTING PAIN PILL BEFORE GOING TO RADIOLOGY, PERCOCET GIVEN.
--- NOTE | 2016-12-05 03:50 | NUR ---
RADIOLOGY AT BS, PT TAKEN FOR PA AND LATERAL.
--- NOTE | 2016-12-05 04:15 | NUR ---
PT RETURNED TO ROOM AND ASSISTED TO RESTROOM, VOIDED 100 YELLOW URINE, LINEN CHANGE PROVIDED, PT WISHES TO WAIT UNTIL LATER IN THE AM FOR BATH, REPOSITIONED UP IN BED FOR COMFORT, SR UP X 2, CALL LIGHT IN REACH.
--- NOTE | 2016-12-05 06:00 | NUR ---
PT RESTING ON SIDE, EYES CLOSED, RESP EVEN AND AND UNLABORED, VSS, NO VISITORS IN AT THIS TIME.
--- NOTE | 2016-12-05 08:00 | NUR ---
SHIFT ASSESSMENT VIA FLOWSHEET, SEE FOR DETAILS.
--- NOTE | 2016-12-05 11:08 | NUR ---
NUTRITION F/U CHART REVIEWED, PT VISIT. PT REPORTS TOLERATING REG DIET WITH GOOD INTAKE BREAKFAST THIS AM. WILL CONTINUE TO PROVIDE DIET, MONITOR INTAKE. RD FOLLOWING
--- NOTE | 2016-12-05 11:45 | NUR ---
REASSESSMENT VIA FLOWSHEET, SEE FOR DETAILS.
--- NOTE | 2016-12-05 15:30 | NUR ---
REASSESSMENT VIA FLOWSHEET, SEE FOR DETAILS.
[2016-12-05] MEDS ORDERED: BETAPACE 80 MG80 MG PO (16:58)
[2016-12-05] MEDS ORDERED: HYDROCODONE-APA1 TAB PO (17:01)
--- NOTE | 2016-12-05 18:00 | NUR ---
NO VISITORS AT THIS TIME. PT VOICES NO ADDITIONAL NEEDS. VSS, CALL LIGHT WITHIN REACH.
--- NOTE | 2016-12-05 19:45 | NUR ---
REPORT RECIEVED. ASSESSMENT COMPLETE PER FLOW SHEET. VSS. PT SLEEPING COMFORTABLY. DENIES PAIN OR NEEDS AT THIS TIME. WILL CONTINUE TO MONITOR
--- NOTE | 2016-12-05 21:00 | NUR ---
NO FAMILY AT THIS TIME. VSS. NO NEW CHANGES. 2100 MEDS ADM WITHOUT DIFFICULTY. WILLCONTINUE TO MONITOR
--- NOTE | 2016-12-05 22:39 | NUR ---
RESP AT BEDSIDE. NEIL NEEDS.
--- NOTE | 2016-12-05 23:19 | NUR ---
REASSESSMENT COMPLETE PER FLOW SHEET. VSS. NO NEW CHANGES. WILL CONTINUE TO MONITOR
[2016-12-06] VITALS (17 sets, daily range): BP systolic 101–151; BP diastolic 36–77
--- NOTE | 2016-12-06 00:50 | NUR ---
ASSISTED TO BEDSIDE COMMODE. VSS. DENIES FURTHER NEEDS WILL CONTINUE TO MONITOR
--- NOTE | 2016-12-06 03:33 | NUR ---
REASSESSMENT COMPELTE EPR FLOW SHEET. VSS. NO NEW CHANGES. WILL CONTINUE TO MONTIOR
--- NOTE | 2016-12-06 04:58 | NUR ---
PT SLEEPING COMFORTABLY. VSS NO NEW CHAGNES. WILL CONTINUE TO MONITOR
--- NOTE | 2016-12-06 08:00 | NUR ---
SHIFT ASSESSMENT VIA FLOWSHEET, SEE FOR DETAILS.
--- NOTE | 2016-12-06 09:00 | NUR ---
PT'S SISTER AT BEDSIDE, UPDATE PROVIDED. VSS.
--- NOTE | 2016-12-06 11:00 | NUR ---
Patient Name: JASPER BOYKIN Encounter No: [id number] : 1945 Primary Insurance: MEDICARE A & B Anticipated DC Date: 12-03-2016 Planned Disposition: Home DCP follow-up note: DC Order rec'd. No needs identified or verbalized. Patient and family in agreement with discharge plan. No changes to plan. Valeri Falcon
--- NOTE | 2016-12-06 11:30 | NUR ---
REASSESSMENT VIA FLOWSHEET, SEE FOR DETAILS.
--- NOTE | 2016-12-06 17:00 | NUR ---
DISCHARGE TEACHING PROVIDED AND QUESTIONS ANSWERED. RIGHT IJ D/C'D WITH CATH TIP INTACT.
--- NOTE | 2016-12-06 17:10 | NUR ---
FRONT ENTRANCE VIA WHEELCHAIR. ALL BELONGINGS TAKEN WITH PATIENT AND PATIENT'S SISTER.
== END 2016-12-06 17:10 | disposition home or self-care (01) | DRG 163 ==
LOC: D.CVICU 05:02 → D.SDCHOLD 05:02 → D.CVICU 11:07
PROVIDERS: Family Medicine; ADMIT Internal Medicine Cardiovascular Disease
PROC: 07T70ZZ Resection of Thorax Lymphatic, Open Approach (ICD-10-PCS; 2016-11-28)
PROC: 0BBC0ZZ Excision of Right Upper Lung Lobe, Open Approach (ICD-10-PCS; principal; 2016-11-28 07:30)
DX: C34.11 Malignant neoplasm of upper lobe, right bronchus or lung (principal); R53.2 Functional quadriplegia; J95.812 Postprocedural air leak; I10 Essential (primary) hypertension; Z87.891 Personal history of nicotine dependence; Y83.8 Other surgical procedures as the cause of abnormal reaction of the patient, or of later complication, without mention of misadventure at the time of the procedure; Y82.8 Other medical devices associated with adverse incidents; I48.91 Unspecified atrial fibrillation

== ENCOUNTER → 2016-12-27 10:40 | Outpatient (CLI) | payer MEDICARE ==
[2016-11-29 10:38] VITALS: BMI 32.8
[~2016-12-27 10:40] MED LIST changes: +HYDROCODONE-APA1 TAB PO
== END | disposition home or self-care (01) ==
LOC: D.RAD 08:00
DX: Z98.890 Other specified postprocedural states (principal)

== ENCOUNTER → 2017-08-06 09:57 | Outpatient (CLI) | payer MEDICARE ==
[2016-11-29 10:38] VITALS: BMI 32.8
== END | disposition home or self-care (01) ==
LOC: D.CT 09:57
DX: C34.90 Malignant neoplasm of unspecified part of unspecified bronchus or lung (principal)

== ENCOUNTER → 2017-10-07 10:45 | Outpatient (CLI) | payer MEDICARE ==
[2016-11-29 10:38] VITALS: BMI 32.8
== END | disposition home or self-care (01) ==
LOC: D.RAD 10:45
DX: C34.11 Malignant neoplasm of upper lobe, right bronchus or lung (principal)

== ENCOUNTER → 2018-07-14 08:42 | Outpatient (CLI) | payer MEDICARE ==
[2016-11-29 10:38] VITALS: BMI 32.8
== END | disposition home or self-care (01) ==
LOC: D.CT 08:42
PROVIDERS: ATTEND Internal Medicine Hematology & Oncology
DX: C34.90 Malignant neoplasm of unspecified part of unspecified bronchus or lung (principal)